=== PATIENT | female | born 1960 ===

== ENCOUNTER 2016-08-10 22:10 | Observation (INO) | payer MEDICAID, OTHER ==
[2016-08-10] MEDS ORDERED: Alum-Mag Hydrox-Simethicone Susp (30 mL) PO STA (22:31)
[2016-08-10] MEDS ORDERED: Sodium Chloride 0.9% 1,000 ML IV STA (22:31)
[2016-08-10 23:15] LABS: BASO # 0.02 K/mm3 (0.0-2.0); BASO % 0.3 % (0.0-3.0); EOS # 0.6 (0.0-0.7); GRAN % 45.1 % (50.0-68.0); HEMOGLOBIN 12.3 gm/dL (12.0-16.0); LYMPH # 2.2 (1.2-3.4); LYMPH % 37.9 % (22.0-35.0); MEAN CELL VOLUME 87.5 fL (80.0-105.0); MEAN CORPUSCULAR HEMOGLOBIN 29.1 pg (25.0-35.0); MEAN CORPUSCULAR HGB CONC 33.2 g/dl (31.0-37.0); MEAN PLATELET VOLUME 10.5 fl (7.0-11.0); MONO # 0.4 (0.1-0.6); MONO % 6.7 % (1.0-6.0); PLATELET COUNT 232 10^3/uL (120.0-450.0); RBC 4.23 10^6/uL (3.5-6.1); RED CELL DISTRIBUTION WIDTH 12.5 % (11.5-14.5); WHITE BLOOD COUNT 5.8 10^3/ul (4.5-11.0)
[2016-08-10 23:24] LABS: ALB/GLOB RATIO 1.2 (1.1-1.8); ALBUMIN 3.8 g/dL (3.0-4.8); ALT/SGPT 27 U/L (7-56); AST/SGOT 19 U/L (15-39); BLOOD UREA NITROGEN 23 mg/dL (7-21); CALCIUM 8.8 mg/dL (8.4-10.5); GFR AFRICAN-AMERICAN > 60; GFR NON-AFRICAN AMERICAN > 60; LIPASE 175 U/L (23-300)
[2016-08-10 23:36] LABS: TROPONIN I < 0.01 ng/mL
[2016-08-11] LABS: URINE BILIRUBIN NEGATIVE (NEGATIVE); URINE BLOOD NEGATIVE (NEGATIVE); URINE GLUCOSE (UA) NEGATIVE (NEGATIVE); URINE LEUKOCYTE ESTERASE NEGATIVE Leu/uL (NEGATIVE); URINE NITRATE NEGATIVE (NEGATIVE); URINE PROTEIN NEGATIVE mg/dL (<30 mg/dL); URINE UROBILINOGEN 0.2 E.U./dL (<1 E.U./dL)
[2016-08-11 00:08] LABS: URINE APPEARANCE CLEAR (CLEAR); URINE COLOR YELLOW (YELLOW)
--- NOTE | 2016-08-11 01:50 | ED PDOC ---
Arrival/HPI - General Chief Complaint: Abdominal Pain Time Seen by Provider: 08/10/16 22:31 Historian: Patient - History of Present Illness Narrative History of Present Illness (Text): 08/11/16 22:31 Carol Ann Roberson is a 56 year old female, whose past medical history includes peptic ulcer disease and EGD (approximately 11 years ago), who presents to the emergency department complaining of epigastric and RUQ pain for 3 days. Patient notes experiencing one episode of associated vomiting yesterday. Patient states that she took some antacids with little relief. Patient denies any nausea, diarrhea, fever, or any other complaint at this time. PMD: None Time/Duration: < week Symptom Onset: Gradual Symptom Course: Unchanged Severity Level: Mild Activities at Onset: Rest Context: Home Past Medical History - Provider Review Nursing Documentation Reviewed: Yes - Infectious Disease Hx of Infectious Diseases: None - Tetanus Immunization Tetanus Immunization: Unknown - Psychiatric Hx Substance Use: No - Surgical History Hx Hysterectomy: Yes - Anesthesia Hx Anesthesia: Yes Hx Anesthesia Reactions: No Hx Malignant Hyperthermia: No Family/Social History - Physician Review Nursing Documentation Reviewed: Yes Family/Social History: No Known Family HX Smoking Status: Never Smoked Hx Alcohol Use: No Hx Substance Use: No Allergies/Home Meds Allergies/Adverse Reactions: Allergies No Known Allergies Allergy (Verified 01/20/15 13:46) Home Medications: Home Meds Medication Instructions Recorded Confirmed No Known Home Med 08/11/16 08/11/16 Review of Systems - Physician Review All systems were reviewed & negative as marked: Yes - Review of Systems Constitutional: absent: Fevers, Night Sweats Eyes: absent: Vision Changes ENT: absent: Hearing Changes Respiratory: absent: SOB, Cough Cardiovascular: absent: Chest Pain Gastrointestinal: Abdominal Pain (epigastri and RUQ pain), Vomiting. absent: Diarrhea, Nausea Genitourinary Female: absent: Dysuria, Urine Output Changes Musculoskeletal: absent: Back Pain, Neck Pain Skin: absent: Rash Neurological: absent: Headache, Dizziness Endocrine: absent: Diaphoresis Hemo/Lymphatic: absent: Adenopathy Psychiatric: absent: Anxiety, Depression Physical Exam Vital Signs Reviewed: Yes Vital Signs Temp Pulse Resp BP Pulse Ox 08/11/16 03:29 61 14 126/79 95 08/11/16 01:28 66 16 136/79 97 08/10/16 22:22 98.1 F 92 H 19 137/88 98 08/10/16 22:15 98.1 F 71 16 137/88 95 Temperature: Afebrile Blood Pressure: Normal Pulse: Regular Respiratory Rate: Normal Appearance: Positive for: Well-Appearing, Non-Toxic, Comfortable Pain Distress: None Mental Status: Positive for: Alert and Oriented X 3 - Systems Exam Head: Present: Atraumatic, Normocephalic Pupils: Present: PERRL Extroacular Muscles: Present: EOMI Conjunctiva: Present: Normal Mouth: Present: Moist Mucous Membranes Neck: Present: Normal Range of Motion Respiratory/Chest: Present: Clear to Auscultation, Good Air Exchange. No: Respiratory Distress, Accessory Muscle Use Cardiovascular: Present: Regular Rate and Rhythm, Normal S1, S2. No: Murmurs Abdomen: Present: Tenderness (Epigastric and RUQ tenderness), Other (negative Antunez's sign). No: McBurney's Point Tender Back: Present: Normal Inspection Upper Extremity: Present: Normal Inspection. No: Cyanosis, Edema Lower Extremity: Present: Normal Inspection. No: Edema Neurological: Present: GCS=15, CN II-XII Intact, Speech Normal Skin: Present: Warm, Dry, Normal Color. No: Rashes Psychiatric: Present: Alert, Oriented x 3, Normal Insight, Normal Concentration Medical Decision Making ED Course and Treatment: 08/11/16 22:35 Impression: 56 year old female complaining of epigastric and RUQ pain for 3 days. Differential Diagnosis include but are not limited to: Peptic Ulcer disease vs. Cholelithiasis Plan: -- EKG -- Chest X-ray -- Extremity Ultrasound -- Labs -- Maalox, Bentyl, Pepcid, Zofran, Lidocaine, and IV Fluids -- Reassess and disposition Prior Visits: Notes and results from previous visits were reviewed. Patient last seen in ED on 08/06/15 for right-sided back pain radiating into the right leg for 3 days. Patient was discharged home. Progress Notes: EKG: Ordered, reviewed, and independently interpreted the EKG. Rate : 69 BPM Rhythm : NSR Interpretation : Normal Baker, Normal Intervals. 08/11/16 23:20 Radiographs of the Lumbar Spine: Dictator : Gerber Holly MD FINDINGS: BONES:Normal alignment. No listhesis. No fracture. DISC SPACES:Unremarkable. OTHER FINDINGS:None. IMPRESSION: Unremarkable radiographs of the lumbar spine. 08/11/16 23:50 Right lower extremity venous US: Dictator : Aguila Duarte MD FINDINGS: The visualized deep venous system of the right lower extremity is sonographically normal and compressible. Normal waveforms and augmentation are seen. There is no sonographic evidence for deep venous thrombosis in the visualized segments of the right lower extremity. IMPRESSION: 1. No sonographic evidence for deep venous thrombosis in the visualized segments of the right lower extremity. 08/11/16 04:36 Spoke to surgical rn, who states that further intervention will require admission. Case discussed with Medicine resident, who is aware and agrees with patient plan for admission. - Lab Interpretations Lab Results: 08/10/16 23:03 08/10/16 23:03 Lab Results 08/11/16 04:29: PT 10.3, INR 0.95, APTT 28.0 08/10/16 23:45: Urine HCG, Qual Negative 08/10/16 23:45: Urine Color Yellow, Urine Appearance Clear, Urine pH 6.0, Ur Specific [place] 1.020, Urine Protein Negative, Urine Glucose (UA) Negative, Urine Ketones Negative, Urine Blood Negative, Urine Nitrate Negative, Urine Bilirubin Negative, Urine Urobilinogen 0.2, Ur Leukocyte Esterase Negative 08/10/16 23:03: Sodium 137, Potassium 3.9, Chloride 104, Carbon Dioxide 25, Anion Gap 12, BUN 23 H, Creatinine 0.9, Est GFR ( Amer) > 60, Est GFR ( Non-Af Amer) > 60, Random Glucose 100, Calcium 8.8, Total Bilirubin 0.3, AST 19 , ALT 27, Alkaline Phosphatase 85, Troponin I < 0.01, Total Protein 7.0, Albumin 3.8, Globulin 3.2, Albumin/Globulin Ratio 1.2, Lipase 175 08/10/16 23:03: WBC 5.8, RBC 4.23, Hgb 12.3, Hct 37.0, MCV 87.5, MCH 29.1, MCHC 33.2, RDW 12.5, Plt Count 232, MPV 10.5, Gran % 45.1 L, Lymph % (Auto) 37.9 H, [place] % (Auto) 6.7 H, Eos % (Auto) 10.0 H, Baso % (Auto) 0.3, Gran # 2.60, Lymph # 2.2, [place] # 0.4, Eos # 0.6, Baso # 0.02 I have reviewed the lab results: Yes - RAD Interpretation Radiology Orders: 08/10/16 22:32 CHEST PORTABLE [RAD] Stat 08/10/16 22:49 ABDOMEN COMPLETE [US] Stat - Medication Orders Current Medication Orders: Acetaminophen (Tylenol 325mg Tab) 650 mg PO Q6H PRN PRN Reason: Fever >100.4 F Dicyclomine HCl (Bentyl) 10 mg PO QID JUANA Docusate Sodium (Colace) 100 mg PO BID JUANA Famotidine (Pepcid) 20 mg IVP DAILY JUANA Hydromorphone HCl (Dilaudid) 0.5 mg IVP Q4H PRN PRN Reason: Pain, moderate (4-7) Piperacillin Sod/Tazobactam Sod (Zosyn 3.375 In Ns 100ml) 100 mls @ 200 mls/hr IVPB Q6 JUANA PRN Reason: Protocol Stop: 08/11/16 12:29 Ondansetron HCl (Zofran Inj) 4 mg IVP Q6H PRN PRN Reason: Nausea/Vomiting Discontinued Medications Al Hydrox/Mg Hydrox/Simethicone (Maalox Plus 30 Ml) 30 ml PO STAT STA Stop: 08/10/16 22:32 Last Admin: 08/10/16 22:54 Dose: 30 ml Famotidine (Pepcid) 20 mg IVP STAT STA Stop: 08/10/16 22:32 Last Admin: 08/10/16 22:54 Dose: 20 mg Sodium Chloride (Sodium Chloride 0.9%) 1,000 mls @ 100 mls/hr IV .Q10H STA Stop: 08/11/16 08:30 Last Admin: 08/10/16 22:55 Dose: 100 mls/hr Sodium Chloride (Sodium Chloride 0.9%) 1,000 mls @ 150 mls/hr IV .Q6H40M STA Stop: 08/11/16 05:10 Last Admin: 08/11/16 05:00 Dose: 150 mls/hr Lidocaine HCl (Lidocaine 2% Viscous) 10 ml PO STAT STA Stop: 08/10/16 22:33 Last Admin: 07/06/17 22:54 Dose: 10 ml Ondansetron HCl (Zofran Inj) 4 mg IVP STAT STA Stop: 08/10/16 22:32 Last Admin: 08/10/16 22:55 Dose: 4 mg - Scribe Statement The provider has reviewed the documentation as recorded by the Nik Ang Provider Scribe Attestation: All medical record entries made by the Scribe were at my direction and personally dictated by me. I have reviewed the chart and agree that the record accurately reflects my personal performance of the history, physical exam, medical decision making, and the department course for this patient. I have also personally directed, reviewed, and agree with the discharge instructions and disposition. Disposition/Present on Arrival - Present on Arrival Any Indicators Present on Arrival: No History of DVT/PE: No History of Uncontrolled Diabetes: No Urinary Catheter: No History of Decub. Ulcer: No History Surgical Site Infection Following: None - Disposition Have Diagnosis and Disposition been Completed?: Yes Diagnosis: Cholecystitis Disposition: HOSPITALIZED Disposition Time: 04:10 Condition: STABLE
--- NOTE | 2016-08-11 03:21 | US ---
EXAM: US Abdomen Complete CLINICAL HISTORY: 56 years old, female; Pain; Abdominal pain; Generalized; Additional info: Ruq>luq abdominal pain TECHNIQUE: Real-time ultrasound of the abdomen (complete) with image documentation. COMPARISON: No relevant prior studies available. FINDINGS: Liver: There are no focal liver lesions present. No intrahepatic bile duct dilation. Gallbladder: There is an impacted gallstone at the gallbladder neck measuring 1.4 CM. the sonographic Antunez's sign is reportedly positive although the gallbladder appears contracted. Gallbladder wall thickening measuring 0.4 CM. Common bile duct: Unremarkable as visualized. No stones. No dilation. Pancreas: The pancreas is not well-seen secondary to overlying bowel gas. Kidneys: The left kidney is normal. The right kidney is normal. No stones. No hydronephrosis. Spleen: The spleen is normal. Aorta: The visualized IVC appears unremarkable. The abdominal aorta is not well-seen. Inferior vena cava: See above. IMPRESSION: 1. There is an impacted gallstone at the gallbladder neck measuring 1.4 CM. Reportedly positive sonographic Antunez sign although the gallbladder appears contracted. There does appear to be some mild gallbladder wall thickening although this may relate to under distention. Please correlate for the possibility of acute cholecystitis. If indicated, this can be further evaluated with HIDA scan. 2. Additional incidental and/or chronic findings as described.
[2016-08-11] MEDS ORDERED: Sodium Chloride 0.9% 1,000 ML IV STA (04:31)
--- NOTE | 2016-08-11 04:36 | CP.PCM.CON ---
<Sotero Dyer - Last Filed: 08/11/16 04:51> History of Present Illness - History of Present Illness History of Present Illness: SURGERY CONSULT NOTE FOR DR. SAEZ 56F presents to [facility] [place] with abdominal pain which started 6 days ago. Patient states pain was originally epigastric and associated with nausea and vomiting which relieved the pain last weekend. She states the pain now came back much stronger and almost considered calling ambulance due to the pain. It is currently located in the right upper quadrant and does not radiate. It is sharp and she has not had this pain in the past before. She states last week she had mild chills/fevers, but did not take her temperature. She denies current fevers and chills, denies diarrhea, admits to mild constipation. PMH: GERD PSH: Hysterectomy/bilateral salpingoophorectomy, neck cyst removal Social: denies tobacco/alcohol/illicit drug use Allergies: NKDA Past Patient History - Infectious Disease Hx of Infectious Diseases: None - Tetanus Immunizations Tetanus Immunization: Unknown - Past Social History Smoking Status: Never Smoked - PSYCHIATRIC Hx Substance Use: No - SURGICAL HISTORY Hx Hysterectomy: Yes - ANESTHESIA Hx Anesthesia: Yes Hx Anesthesia Reactions: No Hx Malignant Hyperthermia: No Meds Allergies/Adverse Reactions: Allergies Allergy/AdvReac Type Severity Reaction Status Date / Time No Known Allergies Allergy Verified 01/20/15 13:46 - Medications Medications: Current Medications Acetaminophen (Tylenol 325mg Tab) 650 mg PO Q6H PRN PRN Reason: Fever >100.4 F Dicyclomine HCl (Bentyl) 10 mg PO QID JUANA Famotidine (Pepcid) 20 mg IVP DAILY JUANA Hydromorphone HCl (Dilaudid) 0.5 mg IVP Q4H PRN PRN Reason: Pain, moderate (4-7) Sodium Chloride (Sodium Chloride 0.9%) 1,000 mls @ 150 mls/hr IV .Q6H40M STA Stop: 08/11/16 05:10 Ondansetron HCl (Zofran Inj) 4 mg IVP Q6H PRN PRN Reason: Nausea/Vomiting Physical Exam - Constitutional Appears: Non-toxic, No Acute Distress - Head Exam Head Exam: ATRAUMATIC - Eye Exam Eye Exam: EOMI, PERRL - Respiratory Exam Respiratory Exam: Clear to Auscultation Bilateral, NORMAL BREATHING PATTERN - Cardiovascular Exam Cardiovascular Exam: REGULAR RHYTHM, +S1, +S2 - GI/Abdominal Exam GI & Abdominal Exam: Soft, Tenderness. absent: Distended, Firm, Guarding, Rebound, Rigid Additional comments: right upper quadrant moderate tenderness on palpation, positive freeman's sign - respiratory arrest on inspiration with RUQ palpation - Extremities Exam Extremities exam: Negative for: pedal edema, tenderness - Neurological Exam Neurological exam: Alert, Oriented x3 - Psychiatric Exam Psychiatric exam: Normal Affect, Normal Mood - Skin Skin Exam: Dry, Intact, Normal Color, Warm Results - Vital Signs Recent Vital Signs: Last Vital Signs Temp 98.1 F 08/10/16 22:22 Pulse 61 08/11/16 03:29 Resp 14 08/11/16 03:29 BP 126/79 08/11/16 03:29 Pulse Ox 95 08/11/16 03:29 - Labs Result Diagrams: 08/10/16 23:03 08/10/16 23:03 Labs: Laboratory Results - last 24 hr 08/10/16 08/10/16 08/10/16 23:03 23:03 23:45 WBC 5.8 RBC 4.23 Hgb 12.3 Hct 37.0 MCV 87.5 MCH 29.1 MCHC 33.2 RDW 12.5 Plt Count 232 MPV 10.5 Gran % 45.1 L Lymph % (Auto) 37.9 H [place] % (Auto) 6.7 H Eos % (Auto) 10.0 H Baso % (Auto) 0.3 Gran # 2.60 Lymph # 2.2 [place] # 0.4 Eos # 0.6 Baso # 0.02 Sodium 137 Potassium 3.9 Chloride 104 Carbon Dioxide 25 Anion Gap 12 BUN 23 H Creatinine 0.9 Est GFR ( Amer) > 60 Est GFR (Non-Af Amer) > 60 Random Glucose 100 Calcium 8.8 Total Bilirubin 0.3 AST 19 ALT 27 Alkaline Phosphatase 85 Troponin I < 0.01 Total Protein 7.0 Albumin 3.8 Globulin 3.2 Albumin/Globulin Ratio 1.2 Lipase 175 Urine Color Yellow Urine Appearance Clear Urine pH 6.0 Ur Specific [place] 1.020 Urine Protein Negative Urine Glucose (UA) Negative Urine Ketones Negative Urine Blood Negative Urine Nitrate Negative Urine Bilirubin Negative Urine Urobilinogen 0.2 Ur Leukocyte Esterase Negative Assessment & Plan - Assessment and Plan (Free Text) Assessment: 56F with cholecystitis Abd US: Impacted 1.4cm gallstone at gall bladder neck, mild gallbladder wall thickening, positive sonographic freeman's sign Plan: - NPO, pain control, anti-emetic - Antibiotic, IV fluids, stool softeners - f/u Coag/ HcG - Patient consented for Lap francis - GI/DVT ppx Further recs discuss with Dr. Jessica Dyer, PGY2 <Christine Huang - Last Filed: 08/11/16 13:34> Meds - Medications Medications: Current Medications Acetaminophen (Tylenol 325mg Tab) 650 mg PO Q6H PRN PRN Reason: Fever >100.4 F Dicyclomine HCl (Bentyl) 10 mg PO QID [facility] Last Admin: 08/11/16 09:03 Dose: Not Given Docusate Sodium (Colace) 100 mg PO BID [facility] Last Admin: 08/11/16 09:03 Dose: Not Given Famotidine (Pepcid) 20 mg IVP DAILY [facility] Last Admin: 08/11/16 09:03 Dose: Not Given Hydromorphone HCl (Dilaudid) 0.5 mg IVP Q4H PRN PRN Reason: Pain, moderate (4-7) Sodium Chloride (Sodium Chloride 0.9%) 1,000 mls @ 150 mls/hr IV .Q6H40M [facility] Ondansetron HCl (Zofran Inj) 4 mg IVP Q6H PRN PRN Reason: Nausea/Vomiting Pantoprazole Sodium (Protonix Ec Tab) 40 mg PO 0600 [facility] Results - Vital Signs Recent Vital Signs: Last Vital Signs Temp 97.7 F 08/11/16 07:30 Pulse 61 08/11/16 07:30 Resp 20 08/11/16 07:30 BP 136/86 08/11/16 07:30 Pulse Ox 97 08/11/16 07:30 - Labs Result Diagrams: 08/11/16 08:30 08/11/16 08:30 Labs: Laboratory Results - last 24 hr 08/11/16 08/11/16 08/11/16 05:15 06:10 08:30 WBC 5.5 RBC 4.27 Hgb 12.5 Hct 37.8 MCV 88.5 MCH 29.3 MCHC 33.1 RDW 12.6 Plt Count 230 MPV 10.9 Gran % 49.2 L Lymph % (Auto) 32.0 [place] % (Auto) 8.3 H Eos % (Auto) 10.1 H Baso % (Auto) 0.4 Gran # 2.72 Lymph # 1.8 [place] # 0.5 Eos # 0.6 Baso # 0.02 Sodium Potassium Chloride Carbon Dioxide Anion Gap BUN Creatinine Est GFR ( Amer) Est GFR (Non-Af Amer) Random Glucose Calcium Total Bilirubin AST ALT Alkaline Phosphatase Troponin I Total Protein Albumin Globulin Albumin/Globulin Ratio Blood Type B POSITIVE Blood Type Confirm B POSITIVE Antibody Screen Negative BBK History Checked No verified bt 08/11/16 08/11/16 08:30 10:00 WBC RBC Hgb Hct MCV MCH MCHC RDW Plt Count MPV Gran % Lymph % (Auto) [place] % (Auto) Eos % (Auto) Baso % (Auto) Gran # Lymph # [place] # Eos # Baso # Sodium 140 Potassium 4.0 Chloride 107 Carbon Dioxide 27 Anion Gap 10 BUN 19 Creatinine 0.8 Est GFR ( Amer) > 60 Est GFR (Non-Af Amer) > 60 Random Glucose 99 Calcium 9.1 Total Bilirubin 0.3 AST 21 ALT 22 Alkaline Phosphatase 83 Troponin I < 0.01 Total Protein 6.7 Albumin 3.7 Globulin 2.9 Albumin/Globulin Ratio 1.3 Blood Type Blood Type Confirm Antibody Screen BBK History Checked Assessment & Plan - Assessment and Plan (Free Text) Plan: No surgical intervention at this time. Pt instructed to f/u in office for elective lap francis.
[2016-08-11 05:54] LABS: INR 0.95 (0.93-1.08); PROTHROMBIN TIME 10.3 Seconds (9.9-11.8)
[2016-08-11 05:57] VITALS: RESP 20; BMI 30.2
[2016-08-11] MEDS: Piperacillin/Tazobact 3.375 gm 100 ML IVPB SCH ×2 (06:28→13:31)
--- NOTE | 2016-08-11 06:51 | CP.PCM.HP ---
<Abdullahi Vargas - Last Filed: 08/11/16 06:47> History of Present Illness - History of Present Illness History of Present Illness: Abdullahi Vargas, DO PGY-I CC: Abdominal pain HPI: Ms. Roberson is a very pleasant, alert, 56 y/o female with a PMHx significant for PUD, who presented with a c/o sharp epigastric and RUQ abdominal pain of 3 days duration with radiation to the scapula. Ms. Roberson stated that she actually had the pain for about three weeks on and off, but she came to the ED when the pain reached a 10/10 and did not subside. She further stated that she took Prilosec at home, but that did not help the pain, and fatty foods made the pain worse. She admitted to nausea, but denied any fevers, chills, vomiting, diarrhea, chest pain, or shortness of breath. PSHx: Total hysterectomy and oophorectomy, EGD, Lipoma removal PMHx: Pt denies All: NKDA SocHx: Denies EtOH, Illicits, Smoking FamHx: Non-contributory, but HTN Meds: Pt denies Present on Admission - Present on Admission Any Indicators Present on Admission: No Review of Systems - Review of Systems Review of Systems: ROS: Constitutional: pt denies fever, chills, generalized weakness ENT: pt denies dysphagia, ofalgia, hearing deficit, rhinorrhea Eyes: pt denies sudden loss of vision, diplopia, blurred vision MSK: pt denies muscle stiffness, joint pain, extremity cramping Cardio: pt denies sob, palpitations, CP Pulm: pt denies cough, hemoptysis, wheeze GI: +See HPI; pt denies loss of appetite, constipation, melena, n/v/d : pt denies burning on urination, hematuria Neuro: pt denies watson, numbness, tingling Derm: pt denies skin changes, lesions, nail changes Endo: pt denies intolerance to heat/cold, diaphoresis, night sweats, polydipsia Psych: pt denies anxiety, depression, mood changes Past Patient History - Infectious Disease Hx of Infectious Diseases: None - Tetanus Immunizations Tetanus Immunization: Unknown - Past Social History Smoking Status: Never Smoked - MUSCULOSKELETAL/RHEUMATOLOGICAL Hx Falls: No - PSYCHIATRIC Hx Substance Use: No - SURGICAL HISTORY Hx Hysterectomy: Yes - ANESTHESIA Hx Anesthesia: Yes Hx Anesthesia Reactions: No Hx Malignant Hyperthermia: No Meds Allergies/Adverse Reactions: Allergies Allergy/AdvReac Type Severity Reaction Status Date / Time No Known Allergies Allergy Verified 01/20/15 13:46 Physical Exam - Additional Findings Additional findings: Physical Exam: VSS Constitutional: pleasant female, a&o x 4, nad Head and Neck: neck supple, no jvd, trachea midline, carotid midline,no cervical /head mass Eyes: kira, nonicteric sclera, eom intact ENT: auditory acuity grossly intact, throat not congested, no nasal deformity Cardio: rrr, no m/r/g, no carotid bruit, nml s1, s2 Pulm: no accessory muscle use, equal nml breath sounds bilaterally, ctab Abd: s/nt/nd, nbs x 4 q, no palpable masses Derm: no rashes, no ulcers, no lesions Extr: no cyanosis, no calf tenderness, no lesions, no varicosities Neuro: cn II-XII grossly intact, ue and le 3+ muscle strength bilaterally, no los ue, le bilaterally and core, 2+ reflexes bilaterally Results - Vital Signs Recent Vital Signs: Last Vital Signs Temp 97.7 F 08/11/16 05:41 Pulse 61 08/11/16 05:41 Resp 20 08/11/16 05:41 BP 136/86 08/11/16 05:41 Pulse Ox 97 08/11/16 05:25 - Labs Result Diagrams: 08/10/16 23:03 08/10/16 23:03 Labs: Laboratory Results - last 24 hr 08/11/16 05:15 BBK History Checked No verified bt Assessment & Plan - Assessment and Plan (Free Text) Assessment: A/P: Ms. Roberson is a very pleasant, alert, 56 y/o female with a PMHx significant for PUD, who presented with a c/o epigastric and RUQ abdominal pain. 1.) Abdominal Pain 2/2 Cholelithiasis - EKG - Abd U/S shows pos sonography Antunez sign - Blood type and screen - LE U/S - Maalox, Bentyl, Pepcid, Zofran, Lidocaine, IVF - Surgery on c/s may go to surgery today -Dilaudid for pain 2.) Diet - NPO 3.) Hx/O PUD - F/U o/p <Trav Scott P - Last Filed: 08/20/16 06:30> Results - Vital Signs Recent Vital Signs: Last Vital Signs Temp 97.7 F 08/12/16 16:00 Pulse 69 08/12/16 16:00 Resp 20 08/12/16 16:00 BP 131/81 08/12/16 16:00 Pulse Ox 97 08/12/16 16:00 - Labs Result Diagrams: 08/12/16 06:30 08/12/16 06:30 Attending/Attestation - Attestation I have personally seen and examined this patient.: Yes I have fully participated in the care of the patient.: Yes I have reviewed all pertinent clinical information: Yes
--- NOTE | 2016-08-11 08:54 | RAD ---
HISTORY: r/o infiltrate COMPARISON: No prior. FINDINGS: LUNGS: No active pulmonary disease. PLEURA: No significant pleural effusion identified, no pneumothorax apparent. CARDIOVASCULAR: Normal. OSSEOUS STRUCTURES: No significant abnormalities. VISUALIZED UPPER ABDOMEN: Normal. OTHER FINDINGS: None. IMPRESSION: No active disease.
[2016-08-11 09:03] LABS: BASO # 0.02 K/mm3 (0.0-2.0); BASO % 0.4 % (0.0-3.0); EOS # 0.6 (0.0-0.7); EOS % 10.1 % (1.5-5.0); GRAN # 2.72 (1.4-6.5); GRAN % 49.2 % (50.0-68.0); HEMOGLOBIN 12.5 gm/dL (12.0-16.0); LYMPH # 1.8 (1.2-3.4); MEAN CELL VOLUME 88.5 fL (80.0-105.0); MEAN CORPUSCULAR HEMOGLOBIN 29.3 pg (25.0-35.0); MEAN CORPUSCULAR HGB CONC 33.1 g/dl (31.0-37.0); MEAN PLATELET VOLUME 10.9 fl (7.0-11.0); MONO # 0.5 (0.1-0.6); MONO % 8.3 % (1.0-6.0); PLATELET COUNT 230 10^3/uL (120.0-450.0); RBC 4.27 10^6/uL (3.5-6.1); RED CELL DISTRIBUTION WIDTH 12.6 % (11.5-14.5); WHITE BLOOD COUNT 5.5 10^3/ul (4.5-11.0)
[2016-08-11 09:14] LABS: ALB/GLOB RATIO 1.3 (1.1-1.8); ALBUMIN 3.7 g/dL (3.0-4.8); ALT/SGPT 22 U/L (7-56); AST/SGOT 21 U/L (15-39); BLOOD UREA NITROGEN 19 mg/dL (7-21); CALCIUM 9.1 mg/dL (8.4-10.5); GFR AFRICAN-AMERICAN > 60; GFR NON-AFRICAN AMERICAN > 60
--- NOTE | 2016-08-11 10:40 | CARD ---
APPROVED REPORT EKG Measurement Heart [id number] <Conclusion> Normal sinus rhythm NSSTW changes
--- NOTE | 2016-08-11 10:52 | NM ---
PROCEDURE: Nuclear Medicine Hepatobiliary Scan HISTORY: eval for cholecystitis COMPARISON: August 11, 2016. Abdominal ultrasound TECHNIQUE: 5.9 mCi of technetium 99m Mebrofenin was administered intravenously. Planar images of the abdomen were obtained at 5 min intervals to 60 mins. Delayed images were also obtained. FINDINGS: LIVER: Timely and homogenous uptake. COMMON BILE DUCT: identified at 5 mins. GALLBLADDER: identified at 5 mins. SMALL BOWEL: Identified at 45 mins. IMPRESSION: Normal Hepatobiliary Scan. The cystic duct is patent.
[2016-08-11] MEDS ORDERED: POLYETHYLENE GLYCOL 3350 17 GM/Dose PACKET PO STA (11:41)
--- NOTE | 2016-08-11 12:52 | RAD ---
HISTORY: abdominal pain COMPARISON: No prior. FINDINGS: BOWEL: Normal. No obstruction. No free air. [id number] constipation BONES: Normal. OTHER FINDINGS: None. IMPRESSION: No active disease.
[2016-08-11] MEDS: HYDROmorphone 0.5 mg/0.5 ml ISec IVP PRN (17:37)
--- NOTE | 2016-08-11 18:44 | CP.PCM.PN ---
Subjective - Date & Time of Evaluation Date of Evaluation: 08/11/16 Time of Evaluation: 18:38 - Subjective Subjective: Pt seen and examined at bedside. Pt was initially given a liquid diet and advanced to heart healthy, low fat diet. Pt states abdominal pain became worse after eating food. Denies CP, SOB, nausea, vomiting, diarrhea. Objective - Vital Signs/Intake and Output Vital Signs (last 24 hours): Temp Pulse Resp BP Pulse Ox 98.2 F 65 20 127/78 96 08/11/16 15:58 08/11/16 15:58 08/11/16 15:58 08/11/16 15:58 08/11/16 15:58 Intake and Output: 08/11/16 08/11/16 06:59 18:59 Intake Total 240 Output Total 5 Balance 235 - Medications Medications: Current Medications Acetaminophen (Tylenol 325mg Tab) 650 mg PO Q6H PRN PRN Reason: Fever >100.4 F Dicyclomine HCl (Bentyl) 10 mg PO QID [facility] Last Admin: 08/11/16 17:35 Dose: 10 mg Docusate Sodium (Colace) 100 mg PO BID [facility] Last Admin: 08/11/16 17:35 Dose: 100 mg Famotidine (Pepcid) 20 mg IVP DAILY [facility] Last Admin: 08/11/16 17:37 Dose: 20 mg Hydromorphone HCl (Dilaudid) 0.5 mg IVP Q4H PRN PRN Reason: Pain, moderate (4-7) Last Admin: 08/11/16 17:37 Dose: 0.5 mg Sodium Chloride (Sodium Chloride 0.9%) 1,000 mls @ 150 mls/hr IV .Q6H40M [facility] Ondansetron HCl (Zofran Inj) 4 mg IVP Q6H PRN PRN Reason: Nausea/Vomiting Pantoprazole Sodium (Protonix Ec Tab) 40 mg PO 0600 [facility] - Labs Labs: 08/11/16 08:30 08/11/16 08:30 PT 10.3 Seconds (9.9-11.8) 08/11/16 04:29 INR 0.95 (0.93-1.08) 08/11/16 04:29 APTT 28.0 Seconds (23.7-30.8) 08/11/16 04:29 - Constitutional Appears: Non-toxic, No Acute Distress - Head Exam Head Exam: ATRAUMATIC, NORMAL INSPECTION, NORMOCEPHALIC - Respiratory Exam Respiratory Exam: Clear to Ausculation Bilateral, NORMAL BREATHING PATTERN - Cardiovascular Exam Cardiovascular Exam: RRR, +S1, +S2 - GI/Abdominal Exam GI & Abdominal Exam: Soft, Tenderness (RUQ), Normal Bowel Sounds - Extremities Exam Extremities Exam: absent: Calf Tenderness, Pedal Edema - Neurological Exam Neurological Exam: Alert, Awake, Oriented x3 - Psychiatric Exam Psychiatric exam: Normal Affect, Normal Mood - Skin Skin Exam: Intact, Normal Color, Warm Assessment and Plan - Assessment and Plan (Free Text) Plan: 56 y/o F with no significant PMH presents with biliary colic. Abdominal US showed gallstone in gallbladder neck, follow up HIDA scan did not show any evidence of blockage or cholecystitis. Pt will require IV pain medication at this time due to severe abdominal pain. Pt will undergo Abdomen/pelvis CT with PO contrast to further evaluate abdominal pain. 1. Biliary Colic Troponins negative Abdominal US showed stone in gallbladder neck HIDA negative Abdomen/pelvis CT order Continue dilaudid for pain Start pepcid and protonix Colace for constipation 2. PPX Protonix/Pepcid SCDs Seen, reviewed, and discussed with attending Durga, PGY-2
[2016-08-11 20:31] LABS: ALB/GLOB RATIO 1.2 (1.1-1.8); ALBUMIN 3.8 g/dL (3.0-4.8); ALT/SGPT 23 U/L (7-56); AST/SGOT 21 U/L (15-39); BLOOD UREA NITROGEN 15 mg/dL (7-21); CALCIUM 8.7 mg/dL (8.4-10.5); GFR AFRICAN-AMERICAN > 60; GFR NON-AFRICAN AMERICAN > 60
[2016-08-11] MEDS: Sodium Chloride 0.9% 1,000 ML IV SCH (21:47)
[2016-08-12] MEDS: Sodium Chloride 0.9% 1,000 ML IV SCH ×2 (05:41→09:58)
[2016-08-12] MEDS ORDERED: Pantoprazole 40 mg EC Tab PO SCH (06:00)
[2016-08-12 07:14] LABS: HEMOGLOBIN 12.4 gm/dL (12.0-16.0); MEAN CELL VOLUME 88.4 fL (80.0-105.0); MEAN CORPUSCULAR HEMOGLOBIN 28.7 pg (25.0-35.0); MEAN CORPUSCULAR HGB CONC 32.5 g/dl (31.0-37.0); MEAN PLATELET VOLUME 10.7 fl (7.0-11.0); RBC 4.32 10^6/uL (3.5-6.1); RED CELL DISTRIBUTION WIDTH 12.5 % (11.5-14.5); WHITE BLOOD COUNT 5.9 10^3/ul (4.5-11.0)
[2016-08-12 07:22] LABS: ALB/GLOB RATIO 1.2 (1.1-1.8); ALBUMIN 3.4 g/dL (3.0-4.8); ALT/SGPT 26 U/L (7-56); AST/SGOT 19 U/L (15-39); BLOOD UREA NITROGEN 13 mg/dL (7-21); CALCIUM 8.7 mg/dL (8.4-10.5); GFR AFRICAN-AMERICAN > 60; GFR NON-AFRICAN AMERICAN > 60
--- NOTE | 2016-08-12 11:21 | CP.PCM.CON ---
History of Present Illness - History of Present Illness History of Present Illness: CC: Abdominal pain HPI: 56 year old female who presents with RUQ abdominal pain. She says the pain started about 1 week ago, localized to the RUQ, severe, worse with fatty food. Denies fever, jaundice, or pruritis. No change in color of urine. No chest pain or sob. No prior h/o gallbladder disease. Denies nausea or vomiting. She reports h/o PUD and remote h/o endoscopy but not recently. She has mild intermittent constipation. No blood in the stool. No colonoscopy in the past. PMH: History of PUD, Obesity PSH: BRANNON/BSO, Lipoma removal SHx: denies tobacco/alcohol/illicit drug use FHx: no family history of gi problems ROS A comprehensive review of systems was performed and was negative apart from HPI Past Patient History - Infectious Disease Hx of Infectious Diseases: None - Tetanus Immunizations Tetanus Immunization: Unknown - Past Social History Smoking Status: Never Smoked - HEMATOLOGICAL/ONCOLOGICAL Hx Blood Transfusions: No Hx Blood Transfusion Reaction: No - MUSCULOSKELETAL/RHEUMATOLOGICAL Hx Falls: No - PSYCHIATRIC Hx Substance Use: No - SURGICAL HISTORY Hx Surgeries: Yes - ANESTHESIA Hx Anesthesia Reactions: No Hx Malignant Hyperthermia: No Meds Allergies/Adverse Reactions: Allergies Allergy/AdvReac Type Severity Reaction Status Date / Time No Known Allergies Allergy Verified 01/20/15 13:46 - Medications Medications: Current Medications Acetaminophen (Tylenol 325mg Tab) 650 mg PO Q6H PRN PRN Reason: Fever >100.4 F Last Admin: 08/12/16 09:59 Dose: 650 mg Dicyclomine HCl (Bentyl) 10 mg PO QID REPLACED BY [facility] Last Admin: 08/12/16 09:31 Dose: Not Given Docusate Sodium (Colace) 100 mg PO BID [facility]PL[facility] BY [facility] Last Admin: 08/12/16 09:31 Dose: Not Given Famotidine (Pepcid) 20 mg IVP DAILY [facility] Last Admin: 08/12/16 09:31 Dose: Not Given Hydromorphone HCl (Dilaudid) 0.5 mg IVP Q4H PRN PRN Reason: Pain, moderate (4-7) Last Admin: 08/11/16 17:37 Dose: 0.5 mg Sodium Chloride (Sodium Chloride 0.9%) 1,000 mls @ 150 mls/hr IV .Q6H40M [facility]PLAC[facility] Last Admin: 08/12/16 09:58 Dose: 150 mls/hr Ondansetron HCl (Zofran Inj) 4 mg IVP Q6H PRN PRN Reason: Nausea/Vomiting Pantoprazole Sodium (Protonix Ec Tab) 40 mg PO 0600 [facility] Last Admin: 08/12/16 05:41 Dose: 40 mg Pantoprazole Sodium (Protonix Ec Tab) 40 mg PO ONCE ONE Stop: 08/12/16 19:08 Physical Exam - Constitutional Appears: Well, No Acute Distress - Head Exam Head Exam: ATRAUMATIC, NORMOCEPHALIC - Eye Exam Eye Exam: PERRL. absent: Scleral icterus - ENT Exam ENT Exam: Mucous Membranes Moist, Normal Oropharynx - Neck Exam Neck exam: Negative for: Lymphadenopathy - Respiratory Exam Respiratory Exam: Clear to Auscultation Bilateral, NORMAL BREATHING PATTERN - Cardiovascular Exam Cardiovascular Exam: REGULAR RHYTHM, +S1, +S2 - GI/Abdominal Exam GI & Abdominal Exam: Soft, Tenderness Additional comments: +murphys - Extremities Exam Extremities exam: Positive for: normal capillary refill. Negative for: pedal edema - Neurological Exam Neurological exam: Alert, Oriented x3 - Psychiatric Exam Psychiatric exam: Normal Affect, Normal Mood - Skin Skin Exam: Dry, Intact, Warm Results - Vital Signs Recent Vital Signs: Last Vital Signs Temp 98.3 F 08/12/16 08:00 Pulse 66 08/12/16 08:00 Resp 20 08/12/16 08:00 BP 128/80 08/12/16 08:00 Pulse Ox 95 08/12/16 08:00 - Labs Result Diagrams: 08/12/16 06:30 08/12/16 06:30 Labs: Laboratory Results - last 24 hr 08/11/16 08/11/16 08/11/16 10:00 18:39 19:49 WBC RBC Hgb Hct MCV MCH MCHC RDW Plt Count MPV Sodium 137 Potassium 3.9 Chloride 105 Carbon Dioxide 24 Anion Gap 12 BUN 15 Creatinine 0.8 Est GFR ( Amer) > 60 Est GFR (Non-Af Amer) > 60 Random Glucose 104 Calcium 8.7 Total Bilirubin 0.3 AST 21 ALT 23 Alkaline Phosphatase 71 Troponin I < 0.01 < 0.01 Total Protein 6.9 Albumin 3.8 Globulin 3.1 Albumin/Globulin Ratio 1.2 08/12/16 08/12/16 06:30 06:30 WBC 5.9 RBC 4.32 Hgb 12.4 Hct 38.2 MCV 88.4 MCH 28.7 MCHC 32.5 RDW 12.5 Plt Count 225 MPV 10.7 Sodium 142 Potassium 4.0 Chloride 107 Carbon Dioxide 26 Anion Gap 13 BUN 13 Creatinine 0.8 Est GFR ( Amer) > 60 Est GFR (Non-Af Amer) > 60 Random Glucose 93 Calcium 8.7 Total Bilirubin 0.4 AST 19 ALT 26 Alkaline Phosphatase 64 Troponin I Total Protein 6.3 Albumin 3.4 Globulin 2.9 Albumin/Globulin Ratio 1.2 Assessment & Plan - Assessment and Plan (Free Text) Assessment: 56 year old female who presents with RUQ pain, +murphys sign, large stone in GB neck. 1. Acute cholecystitis Plan: -recommend cholecysectomy per surgery -lfts normal -cbd normal in diameter -no evidence ot suggest choledocholithiasis -no further evaluation at this time -continue antibiotics -will sign off at this time - Date & Time Date: 08/12/16 Time: 11:20
[2016-08-12] MEDS: HYDROmorphone 0.5 mg/0.5 ml ISec IVP PRN (12:53)
[2016-08-12] MEDS ORDERED: Iohexol 240 (50 ml) ONE (14:44)
[2016-08-12] MEDS ORDERED: Iohexol 350 MG/100 ML VIAL ONE (14:44)
--- NOTE | 2016-08-12 15:59 | CP.PCM.PN ---
Subjective - Date & Time of Evaluation Date of Evaluation: 08/12/16 Time of Evaluation: 15:56 - Subjective Subjective: General Surgery - Dr. Lopez Pt S&E. [facility]. This morning pt still had some complaints of RUQ pain, later this afternoon pt states she feels much better. She currently is tolerating regular diet with no N/V, F/C, SOB/Cp. Objective - Vital Signs/Intake and Output Vital Signs (last 24 hours): Temp Pulse Resp BP Pulse Ox 98.3 F 66 20 128/80 95 08/12/16 08:00 08/12/16 08:00 08/12/16 08:00 08/12/16 08:00 08/12/16 08:00 Intake and Output: 08/12/16 08/12/16 06:59 18:59 Intake Total 660 Balance 660 - Medications Medications: Current Medications Acetaminophen (Tylenol 325mg Tab) 650 mg PO Q6H PRN PRN Reason: Fever >100.4 F Last Admin: 08/12/16 09:59 Dose: 650 mg Dicyclomine HCl (Bentyl) 10 mg PO QID [facility] Last Admin: 08/12/16 12:59 Dose: 10 mg Docusate Sodium (Colace) 100 mg PO BID [facility] Last Admin: 08/12/16 09:31 Dose: Not Given Famotidine (Pepcid) 20 mg IVP DAILY [facility] Last Admin: 08/12/16 09:31 Dose: Not Given Hydromorphone HCl (Dilaudid) 0.5 mg IVP Q4H PRN PRN Reason: Pain, moderate (4-7) Last Admin: 08/12/16 12:53 Dose: 0.5 mg Sodium Chloride (Sodium Chloride 0.9%) 1,000 mls @ 150 mls/hr IV .Q6H40M [facility] Last Admin: 08/12/16 09:58 Dose: 150 mls/hr Piperacillin Sod/Tazobactam Sod (Zosyn 3.375 In Ns 100ml) 100 mls @ 200 mls/hr IVPB Q6 [facility] PRN Reason: Protocol Stop: 08/13/16 00:29 Ondansetron HCl (Zofran Inj) 4 mg IVP Q6H PRN PRN Reason: Nausea/Vomiting Pantoprazole Sodium (Protonix Ec Tab) 40 mg PO 0600 [facility] Last Admin: 08/12/16 05:41 Dose: 40 mg Pantoprazole Sodium (Protonix Ec Tab) 40 mg PO ONCE ONE Stop: 08/12/16 19:08 - Labs Labs: 08/12/16 06:30 08/12/16 06:30 PT 10.3 Seconds (9.9-11.8) 08/11/16 04:29 INR 0.95 (0.93-1.08) 08/11/16 04:29 APTT 28.0 Seconds (23.7-30.8) 08/11/16 04:29 - Constitutional Appears: No Acute Distress - Head Exam Head Exam: ATRAUMATIC, NORMAL INSPECTION, NORMOCEPHALIC - Respiratory Exam Respiratory Exam: NORMAL BREATHING PATTERN. absent: Respiratory Distress - Cardiovascular Exam Cardiovascular Exam: REGULAR RHYTHM - GI/Abdominal Exam GI & Abdominal Exam: Soft, Tenderness (mild ttp RUQ). absent: Distended, Guarding, Rebound - Neurological Exam Neurological Exam: Alert, Oriented x3 - Psychiatric Exam Psychiatric exam: Normal Affect, Normal Mood - Skin Skin Exam: Dry, Intact Assessment and Plan - Assessment and Plan (Free Text) Assessment: 56 yo F w/ cholelithiasis, biliary colic -Tolerating regular diet and pain is resolved -Clear for discharge home from surgical standpoint -Recc. D/C with Pepcid and Toradol PO prn -Instructions given to F/U with Dr. Lopez in office within the next 1- 2weeks and return to ED if any new or worsening pain/vomiting/fevers develop DW Dr. Lopez Trinidad PGY3
[2016-08-12 16:47] VITALS: BP 131/81; PULSE 69; TEMP 97.7; O2SAT 97
[2016-08-12] MEDS ORDERED: Piperacillin/Tazobact 3.375 gm 100 ML IVPB SCH (18:00)
--- NOTE | 2016-08-12 18:15 | CP.PCM.DIS ---
<DIANE FAY - Last Filed: 08/12/16 18:12> Provider - Provider Date of Admission: 08/11/16 04:32 Attending physician: Carola Taveras MD Primary care physician: NO PRIMARY CARE PROVIDER Time Spent in preparation of Discharge (in minutes): 45 Hospital Course - Lab Results Lab Results: Most Recent Lab Values WBC 5.9 10^3/ul (4.5-11.0) 08/12/16 06:30 RBC 4.32 10^6/uL (3.5-6.1) 08/12/16 06:30 Hgb 12.4 gm/dL (12.0-16.0) 08/12/16 06:30 Hct 38.2 % (36.0-48.0) 08/12/16 06:30 MCV 88.4 fL (80.0-105.0) 08/12/16 06:30 MCH 28.7 pg (25.0-35.0) 08/12/16 06:30 MCHC 32.5 g/dl (31.0-37.0) 08/12/16 06:30 RDW 12.5 % (11.5-14.5) 08/12/16 06:30 Plt Count 225 10^3/uL (120.0-450.0) 08/12/16 06:30 MPV 10.7 fl (7.0-11.0) 08/12/16 06:30 Gran % 49.2 % (50.0-68.0) L 08/11/16 08:30 Lymph % (Auto) 32.0 % (22.0-35.0) 08/11/16 08:30 [place]ledso[place] % (Auto) 8.3 % (1.0-6.0) H 08/11/16 08:30 Eos % (Auto) 10.1 % (1.5-5.0) H 08/11/16 08:30 Baso % (Auto) 0.4 % (0.0-3.0) 08/11/16 08:30 Gran # 2.72 (1.4-6.5) 08/11/16 08:30 Lymph # 1.8 (1.2-3.4) 08/11/16 08:30 [place] # 0.5 (0.1-0.6) 08/11/16 08:30 Eos # 0.6 (0.0-0.7) 08/11/16 08:30 Baso # 0.02 K/mm3 (0.0-2.0) 08/11/16 08:30 PT 10.3 Seconds (9.9-11.8) 08/11/16 04:29 INR 0.95 (0.93-1.08) 08/11/16 04:29 APTT 28.0 Seconds (23.7-30.8) 08/11/16 04:29 Sodium 142 mmol/L (132-148) 08/12/16 06:30 Potassium 4.0 mmol/L (3.6-5.0) 08/12/16 06:30 Chloride 107 mmol/L (95-110) 08/12/16 06:30 Carbon Dioxide 26 mmol/L (21-33) 08/12/16 06:30 Anion Gap 13 (10-20) 08/12/16 06:30 BUN 13 mg/dL (7-21) 08/12/16 06:30 Creatinine 0.8 mg/dL (0.5-1.4) 08/12/16 06:30 Est GFR ( Amer) > 60 08/12/16 06:30 Est GFR (Non-Af Amer) > 60 08/12/16 06:30 Random Glucose 93 mg/dL (70-110) 08/12/16 06:30 Calcium 8.7 mg/dL (8.4-10.5) 08/12/16 06:30 Total Bilirubin 0.4 mg/dL (0.2-1.3) 08/12/16 06:30 AST 19 U/L (15-39) 08/12/16 06:30 ALT 26 U/L (7-56) 08/12/16 06:30 Alkaline Phosphatase 64 U/L (38-133) 08/12/16 06:30 Troponin I < 0.01 ng/mL 08/11/16 18:39 Total Protein 6.3 g/dL (5.8-8.3) 08/12/16 06:30 Albumin 3.4 g/dL (3.0-4.8) 08/12/16 06:30 Globulin 2.9 gm/dL 08/12/16 06:30 Albumin/Globulin Ratio 1.2 (1.1-1.8) 08/12/16 06:30 Lipase 175 U/L (23-300) 08/10/16 23:03 Urine Color Yellow (YELLOW) 08/10/16 23:45 Urine Appearance Clear (CLEAR) 08/10/16 23:45 Urine pH 6.0 (4.7-8.0) 08/10/16 23:45 Ur Specific [place] 1.020 (1.005-1.035) 08/10/16 23:45 Urine Protein Negative mg/dL (<30 mg/dL) 08/10/16 23:45 Urine Glucose (UA) Negative mg/dL (NEGATIVE) 08/10/16 23:45 Urine Ketones Negative mg/dL (NEGATIVE) 08/10/16 23:45 Urine Blood Negative (NEGATIVE) 08/10/16 23:45 Urine Nitrate Negative (NEGATIVE) 08/10/16 23:45 Urine Bilirubin Negative (NEGATIVE) 08/10/16 23:45 Urine Urobilinogen 0.2 E.U./dL (<1 E.U./dL) 08/10/16 23:45 Ur Leukocyte Esterase Negative Ismael/uL (NEGATIVE) 08/10/16 23:45 Urine HCG, Qual Negative (NEGATIVE) 08/10/16 23:45 Blood Type B POSITIVE 08/11/16 05:15 Blood Type Confirm B POSITIVE 08/11/16 06:10 Antibody Screen Negative 08/11/16 05:15 BBK History Checked No verified bt 08/11/16 05:15 - Date & Time of H&P Date of H&P: 08/11/16 Time of H&P: 06:50 Discharge Exam - Head Exam Head Exam: ATRAUMATIC, NORMAL INSPECTION, NORMOCEPHALIC - Eye Exam Eye Exam: EOMI, Normal appearance, PERRL - ENT Exam ENT Exam: Mucous Membranes Moist, Normal Exam - Respiratory Exam Respiratory Exam: Clear to PA & Lateral, NORMAL BREATHING PATTERN. absent: Rales, Rhonchi, Wheezes, Respiratory Distress - Cardiovascular Exam Cardiovascular Exam: REGULAR RHYTHM, +S1, +S2. absent: Gallop, Rubs, Systolic Murmur - GI/Abdominal Exam GI & Abdominal Exam: Soft. absent: Distended, Guarding, Rigid, Tenderness - Neurological Exam Neurological exam: Alert, Oriented x3 - Psychiatric Exam Psychiatric exam: Normal Affect, Normal Mood - Skin Skin Exam: Normal Color, Warm Discharge Plan - Discharge Medications Prescriptions: Famotidine [Pepcid] 20 mg PO HS #20 tab oxyCODONE/Acetaminophen [Percocet 5/325 mg Tab] 1 ea PO Q6H PRN #10 tab PRN Reason: Pain, Moderate (4-7) - Follow Up Plan Condition: STABLE Disposition: HOME/ ROUTINE Instructions: Famotidine (By mouth), Oxycodone/Acetaminophen (By mouth), Peptic Ulcer (DC), Cholecystitis (DC), Low Fat Diet (DC) Additional Instructions: 1. Patient should f/u within 1-[address] Lopez 2. Return to ED if any new or worsening pain/vomiting/fevers develo 2. Meds: Pepcid 20mg PO at night, percocet 5/325 mg every 6 hours as needed PO 3. Recommendations: AVOID FATTY FOODS! Patient should follow low-fat diet, so as to not aggravate her symptoms Referrals: Antoni Pan MD [Staff Provider] - Heriberto Lopez MD [Staff Provider] - PCP,NO [Primary Care Provider] - <Bozena Reed - Last Filed: 08/12/16 22:04> Provider - Provider Date of Admission: 08/11/16 04:32 Attending physician: Carola Taveras MD Primary care physician: NO PRIMARY CARE PROVIDER Hospital Course - Lab Results Lab Results: Most Recent Lab Values WBC 5.9 10^3/ul (4.5-11.0) 08/12/16 06:30 RBC 4.32 10^6/uL (3.5-6.1) 08/12/16 06:30 Hgb 12.4 gm/dL (12.0-16.0) 08/12/16 06:30 Hct 38.2 % (36.0-48.0) 08/12/16 06:30 MCV 88.4 fL (80.0-105.0) 08/12/16 06:30 MCH 28.7 pg (25.0-35.0) 08/12/16 06:30 MCHC 32.5 g/dl (31.0-37.0) 08/12/16 06:30 RDW 12.5 % (11.5-14.5) 08/12/16 06:30 Plt Count 225 10^3/uL (120.0-450.0) 08/12/16 06:30 MPV 10.7 fl (7.0-11.0) 08/12/16 06:30 Gran % 49.2 % (50.0-68.0) L 08/11/16 08:30 Lymph % (Auto) 32.0 % (22.0-35.0) 08/11/16 08:30 Bledso[place] % (Auto) 8.3 % (1.0-6.0) H 08/11/16 08:30 Eos % (Auto) 10.1 % (1.5-5.0) H 08/11/16 08:30 Baso % (Auto) 0.4 % (0.0-3.0) 08/11/16 08:30 Gran # 2.72 (1.4-6.5) 08/11/16 08:30 Lymph # 1.8 (1.2-3.4) 08/11/16 08:30 [place] # 0.5 (0.1-0.6) 08/11/16 08:30 Eos # 0.6 (0.0-0.7) 08/11/16 08:30 Baso # 0.02 K/mm3 (0.0-2.0) 08/11/16 08:30 PT 10.3 Seconds (9.9-11.8) 08/11/16 04:29 INR 0.95 (0.93-1.08) 08/11/16 04:29 APTT 28.0 Seconds (23.7-30.8) 08/11/16 04:29 Sodium 142 mmol/L (132-148) 08/12/16 06:30 Potassium 4.0 mmol/L (3.6-5.0) 08/12/16 06:30 Chloride 107 mmol/L (95-110) 08/12/16 06:30 Carbon Dioxide 26 mmol/L (21-33) 08/12/16 06:30 Anion Gap 13 (10-20) 08/12/16 06:30 BUN 13 mg/dL (7-21) 08/12/16 06:30 Creatinine 0.8 mg/dL (0.5-1.4) 08/12/16 06:30 Est GFR ( Amer) > 60 08/12/16 06:30 Est GFR (Non-Af Amer) > 60 08/12/16 06:30 Random Glucose 93 mg/dL (70-110) 08/12/16 06:30 Calcium 8.7 mg/dL (8.4-10.5) 08/12/16 06:30 Total Bilirubin 0.4 mg/dL (0.2-1.3) 08/12/16 06:30 AST 19 U/L (15-39) 08/12/16 06:30 ALT 26 U/L (7-56) 08/12/16 06:30 Alkaline Phosphatase 64 U/L (38-133) 08/12/16 06:30 Troponin I < 0.01 ng/mL 08/11/16 18:39 Total Protein 6.3 g/dL (5.8-8.3) 08/12/16 06:30 Albumin 3.4 g/dL (3.0-4.8) 08/12/16 06:30 Globulin 2.9 gm/dL 08/12/16 06:30 Albumin/Globulin Ratio 1.2 (1.1-1.8) 08/12/16 06:30 Lipase 175 U/L (23-300) 08/10/16 23:03 Urine Color Yellow (YELLOW) 08/10/16 23:45 Urine Appearance Clear (CLEAR) 08/10/16 23:45 Urine pH 6.0 (4.7-8.0) 08/10/16 23:45 Ur Specific [place] 1.020 (1.005-1.035) 08/10/16 23:45 Urine Protein Negative mg/dL (<30 mg/dL) 08/10/16 23:45 Urine Glucose (UA) Negative mg/dL (NEGATIVE) 08/10/16 23:45 Urine Ketones Negative mg/dL (NEGATIVE) 08/10/16 23:45 Urine Blood Negative (NEGATIVE) 08/10/16 23:45 Urine Nitrate Negative (NEGATIVE) 08/10/16 23:45 Urine Bilirubin Negative (NEGATIVE) 08/10/16 23:45 Urine Urobilinogen 0.2 E.U./dL (<1 E.U./dL) 08/10/16 23:45 Ur Leukocyte Esterase Negative Ismael/uL (NEGATIVE) 08/10/16 23:45 Urine HCG, Qual Negative (NEGATIVE) 08/10/16 23:45 Blood Type B POSITIVE 08/11/16 05:15 Blood Type Confirm B POSITIVE 08/11/16 06:10 Antibody Screen Negative 08/11/16 05:15 BBK History Checked No verified bt 08/11/16 05:15 Attending/Attestation - Attestation I have personally seen and examined this patient.: Yes I have fully participated in the care of the patient.: Yes I have reviewed all pertinent clinical information, including history, physical exam and plan: Yes Notes (Text): 08/12/16 22:03 Patient seen and examined at bedside.Tolerated her diet and remained symptoms free. case discussed with GI and surgery service and outpatient Lap.Marilyn advised. PPI ordered upon discharge along with prn analgesic support. Agree with the remainder of the discharge plan as outlined by the resident.
[2016-08-12] MEDS ORDERED: Pantoprazole 40 mg EC Tab PO ONE (19:07)
== END 2016-08-12 19:07 | disposition home or self-care (01) ==
LOC: ED 22:10 → ERH 08-11 04:32 → 5RNO 08-11 05:31
PROVIDERS: ADMIT Internal Medicine; ATTEND Internal Medicine
DX: K80.00 Calculus of gallbladder with acute cholecystitis without obstruction (principal); K21.9 Gastro-esophageal reflux disease without esophagitis; K59.00 Constipation, unspecified; Z87.11 Personal history of peptic ulcer disease; Z90.710 Acquired absence of both cervix and uterus; Z82.49 Family history of ischemic heart disease and other diseases of the circulatory system; R40.2412 Glasgow coma scale score 13-15, at arrival to emergency department; Z90.722 Acquired absence of ovaries, bilateral
CPT/HCPCS: 36415; 71010; 74000; 76700; 78227; 80053; 81003; 83690; 84484; 84703; 85025; 85027; 85610; 85730; 86850; 86900; 93005; 96365; 96375; 96376; 99283; A9537; G0378; J1170; J2405; J2543; J7040; Q9966

== ENCOUNTER 2017-02-26 17:39 | Observation (INO) | payer MEDICAID ==
[2017-02-26 17:39] VITALS: BMI 30.2
[2017-02-26] MEDS ORDERED: Sodium Chloride 0.9% 1,000 ML IV STA (20:11)
[2017-02-26] MEDS ORDERED: Morphine 4 mg/ml ISec IVP STA (20:11)
--- NOTE | 2017-02-26 20:17 | ED PDOC ---
Arrival/HPI - General Chief Complaint: Abdominal Pain Time Seen by Provider: 02/26/17 19:59 Historian: Patient - History of Present Illness Narrative History of Present Illness (Text): 02/26/17 20:15 This 56 yo female presents to this ED with her daughter c/o RUQ abdominal pain x 3 days. Patient stated she had similar symptoms last year, and she was told she has GB stones. Patient worsen after she had lunch. Patient is constant. Denies other somatic complains. Time/Duration: Other (see hpi) Quality: Aching Context: Home Past Medical History - Provider Review Nursing Documentation Reviewed: Yes - Infectious Disease Hx of Infectious Diseases: None - Tetanus Immunization Tetanus Immunization: Unknown - Reproductive Menopause: Yes - Hematological/Oncological Hx Blood Transfusions: No Hx Blood Transfusion Reaction: No - Musculoskeletal/Rheumatological Hx Falls: No - Gastrointestinal Other/Comment: gall bladder problem - Psychiatric Hx Substance Use: No - Surgical History Hx Hysterectomy: Yes - Anesthesia Hx Anesthesia Reactions: No Hx Malignant Hyperthermia: No Family/Social History - Physician Review Nursing Documentation Reviewed: Yes Family/Social History: Other (noncontributory) Smoking Status: Never Smoked Hx Alcohol Use: No Hx Substance Use: No Allergies/Home Meds Allergies/Adverse Reactions: Allergies No Known Allergies Allergy (Verified 01/20/15 13:46) Home Medications: Home Meds Medication Instructions Recorded Confirmed Cetirizine HCl [Zyrtec] 10 mg PO DAILY 02/26/17 02/26/17 Review of Systems - Review of Systems Constitutional: Normal. absent: Fatigue, Weight Change, Fevers Eyes: Normal ENT: Normal Respiratory: Normal Cardiovascular: Normal Gastrointestinal: Abdominal Pain, Nausea. absent: Diarrhea, Vomiting Genitourinary Female: Normal Musculoskeletal: Normal Skin: Normal Neurological: Normal Endocrine: Normal Hemo/Lymphatic: Normal Psychiatric: Normal Physical Exam Vital Signs Temp Pulse Resp BP Pulse Ox 02/27/17 01:00 98.6 F 80 16 140/72 100 02/26/17 23:00 98.7 F 72 14 138/70 100 02/26/17 21:00 98.6 F 76 14 138/80 99 02/26/17 19:39 98.6 F 80 16 142/72 100 02/26/17 17:56 98.7 F 65 18 144/80 98 Temperature: Afebrile Blood Pressure: Normal Pulse: Regular Respiratory Rate: Normal Appearance: Positive for: Well-Appearing, Non-Toxic, Comfortable Pain Distress: None Mental Status: Positive for: Alert and Oriented X 3 - Systems Exam Head: Present: Atraumatic, Normocephalic Pupils: Present: PERRL Extroacular Muscles: Present: EOMI Conjunctiva: Present: Normal Mouth: Present: Moist Mucous Membranes Neck: Present: Normal Range of Motion Respiratory/Chest: Present: Clear to Auscultation, Good Air Exchange. No: Respiratory Distress, Accessory Muscle Use Cardiovascular: Present: Regular Rate and Rhythm, Normal S1, S2. No: Murmurs Abdomen: Present: Tenderness (RUQ tenderness. (+) MUrphys' sign), Normal Bowel Sounds. No: Distention, Peritoneal Signs Back: Present: Normal Inspection Upper Extremity: Present: Normal Inspection. No: Cyanosis, Edema Lower Extremity: Present: Normal Inspection. No: Edema Neurological: Present: GCS=15, CN II-XII Intact, Speech Normal Skin: Present: Warm, Dry, Normal Color. No: Rashes Psychiatric: Present: Alert, Oriented x 3, Normal Insight, Normal Concentration Medical Decision Making ED Course and Treatment: 02/26/17 22:[address] Lopez general surgeon. I reviewed labs, and ultrasound report with him. He said he will take this case on consult, and patient will need to be on hospitalist service 02/26/17 22:[address] Burton regarding patient c/o RUQ abd. pain, and ultrasound findings. He agrees with plan for observation. Re-evaluation Time: 22:35 Reassessment Condition: Re-examined, Improving,but remains with symptoms - Lab Interpretations Lab Results: 02/26/17 20:30 02/26/17 20:30 Lab Results 02/26/17 20:30: Sodium 142, Potassium 3.8, Chloride 104, Carbon Dioxide 27, Anion Gap 14, BUN 15, Creatinine 0.8, Est GFR ( Amer) > 60, Est GFR (Non- Af Amer) > 60, Random Glucose 102, Calcium 9.4, Total Bilirubin 0.2, AST 17, ALT 21, Alkaline Phosphatase 70, Total Protein 7.5, Albumin 4.1, Globulin 3.4, Albumin/Globulin Ratio 1.2, Lipase 192 02/26/17 20:30: PT 11.4, INR 1.00, APTT 28.6 02/26/17 20:30: WBC 6.9, RBC 4.31, Hgb 12.3, Hct 38.3, MCV 88.9, MCH 28.5, MCHC 32.1, RDW 12.9, Plt Count 244, MPV 10.8, Gran % 56.4, Lymph % (Auto) 30.8, Donley % (Auto) 6.6 H, Eos % (Auto) 6.1 H, Baso % (Auto) 0.1, Gran # 3.86, Lymph # 2.1 , Donley # 0.5, Eos # 0.4, Baso # 0.01 I have reviewed the lab results: Yes Interpretation: No clinic. lab abnormalty - RAD Interpretation Narrative RAD Interpretations (Text): 02/26/17 22:10 EXAM: US Abdomen Complete FINDINGS: Liver: The liver demonstrates no focal defects and demonstrates hepatopetal flow and measures 14.9 cm. No intrahepatic bile duct dilation. Gallbladder: The gallbladder demonstrates a large stone in the neck. There is slight wall thickening measuring 3-4 mm. There is a negative sono Antunez's sign. Common bile duct: CBD measures 4 mm. No stones. No dilation. Pancreas: The pancreas is not seen due to gas shadowing. Kidneys: The right kidney is normal measuring 10.0 cm with no hydronephrosis. The left kidney is normal measuring 10.1 cm with no hydronephrosis. No stones. Spleen: The the spleen is normal measuring 11.3 cm. Aorta: The Not seen due to gas shadowing. Inferior vena cava: The IVC is normal. IMPRESSION: 1. Large gallstone in the gallbladder neck. There is slight gallbladder wall thickening measuring 3-4 mm but a negative sono Antunez's sign. 2. Otherwise negative abdominal sonogram. No hydronephrosis. Thank you for allowing us to participate in the care of your patient. Dictated and Authenticated by: Hoang Martinez MD 02/26/2017 9:42 PM Eastern Time ([place] & [place]) 02/26/17 22:11 Radiology Orders: 02/26/17 20:10 ABDOMEN COMPLETE [US] Stat 02/26/17 22:44 CHEST PORTABLE [RAD] Stat - Medication Orders Current Medication Orders: Discontinued Medications Hydromorphone HCl (Dilaudid) 0.5 mg IVP Q4H PRN PRN Reason: Pain, moderate (4-7) Last Admin: 02/28/17 00:06 Dose: 0.5 mg TIANNA Pain Assessment Document 02/28/17 00:06 PCO (Rec: 02/28/17 00:08 [id number]) Pain Reassessment Is this a pain reassessment? No Sleep Is patient sleeping during reassessment? No Presence of Pain Presence of Pain Yes Pain Scale Used Pain Scale Used Numeric Location Pain Location Body Site Abdomen Description Description Intermittent Intensity of Pain at present 7 Acceptable Level of Pain 0/10 Radiation Location no Pain Behavior Moaning Rubbing Site Facial Grimacing Aggravating Factors Changing Position Exercise/Activity Alleviating Factors/Management Medication Techniques Relaxation Techniques Inactivity Alleviating Factors Medication Effects of Pain can't sleep IVP Administration Document 02/28/17 00:06 PCO (Rec: 02/28/17 00:08 O [facility] [id number]) Charges for Administration # of IVP Administrations 1 Re-Assess: TIANNA Pain Assessment Document 02/28/17 01:06 PCO (Rec: 02/28/17 03:26 PCO [id number] Pain Reassessment Is this a pain reassessment? Yes Sleep Is patient sleeping during reassessment? No Presence of Pain Presence of Pain No Hydromorphone HCl (Dilaudid) 0.5 mg IVP Q15M PRN PRN Reason: Pain, severe (8-10) Stop: 02/27/17 23:59 Sodium Chloride (Sodium Chloride 0.9%) 1,000 mls @ 999 mls/hr IV .Q1H1M STA Stop: 02/26/17 21:11 Last Admin: 02/26/17 20:32 Dose: 999 mls/hr eMAR Start Stop Document 02/26/17 20:32 AB (Rec: 02/26/17 20:32 AB [id number]) Intravenous Solution Start Date 02/26/17 Start Time 20:32 End Date 02/26/17 End time 21:32 Total Infusion Time 60 Lactated Ringer's (Lactated Ringer's) 1,000 mls @ 125 mls/hr IV .Q8H JUANA Last Admin: 02/28/17 09:31 Dose: 125 mls/hr eMAR Start Stop Document 02/28/17 09:31 EP (Rec: 02/28/17 09:31 EP [id number]) Intravenous Solution Start Date 02/28/17 Start Time 09:31 Piperacillin Sod/Tazobactam Sod (Zosyn 3.375 In Ns 100ml) 100 mls @ 200 mls/hr IVPB Q6 JUANA PRN Reason: Protocol Stop: 02/27/17 06:29 Last Admin: 02/27/17 07:03 Dose: 200 mls/hr eMAR Start Stop Document 02/27/17 07:03 KT (Rec: 02/27/17 08:03 KT [id number]) Intravenous Solution Start Date 02/27/17 Start Time 07:30 End Date 02/27/17 End time 08:00 Total Infusion Time 30 Famotidine 20 mg/ (Miscellaneous) 50 mls @ 100 mls/hr IVPB ONCE ONE Stop: 02/27/17 15:22 Last Admin: 02/27/17 16:29 Dose: 100 mls/hr eMAR Start Stop Document 02/27/17 16:29 EP (Rec: 02/27/17 16:29 EP [id number]) Intravenous Solution Start Date 02/27/17 Start Time 16:29 End Date 02/27/17 End time 16:59 Total Infusion Time 30 Lactated Ringer's (Lactated Ringer's) 1,000 mls @ 75 mls/hr IV .[id number] JUANA Stop: 02/28/17 02:01 Last Admin: 02/27/17 22:21 Dose: 75 mls/hr eMAR Start Stop Document 02/27/17 22:21 PCO (Rec: 02/27/17 22:24 PCO [id number]) Intravenous Solution Start Date 02/27/17 Start Time 22:22 End Date 02/28/17 End time 11:50 Total Infusion Time 808 Cefazolin Sodium (Ancef 1gm In Ns) 1 gm in 100 mls @ 100 mls/hr IVPB Q8 JUANA Stop: 02/28/17 06:59 Last Admin: 02/28/17 06:18 Dose: 100 mls/hr eMAR Start Stop Document 02/28/17 06:18 PCO (Rec: 02/28/17 06:18 PCO [id number] Intravenous Solution Start Date 02/28/17 Start Time 06:18 End Date 02/28/17 End time 07:20 Total Infusion Time 62 Metoclopramide HCl (Reglan) 10 mg IV ONCE PRN PRN Reason: Nausea/Vomiting Morphine Sulfate (Morphine) 4 mg IVP STAT STA Stop: 02/26/17 20:12 Last Admin: 02/26/17 20:32 Dose: 4 mg [facility] Pain Assessment Document 02/26/17 20:32 AB (Rec: 02/26/17 20:32 [id number]) Pain Reassessment Is this a pain reassessment? Yes Sleep Is patient sleeping during reassessment? No Presence of Pain Presence of Pain Yes Pain Scale Used Pain Scale Used Numeric Location Left, Right or Bilateral Right Pain Location Body Site Abdomen Description Description Constant Intensity of Pain at present 8 Radiation Location back Duration x 6 days Pain Behavior Guarding Aggravating Factors ADL's Alleviating Factors/Management Medication Techniques IVP Administration Document 02/26/17 20:32 AB (Rec: 02/26/17 20:32 AB [id number]) Charges for Administration # of IVP Administrations 1 Re-Assess: [facility] Pain Assessment Document 02/26/17 21:32 AB (Rec: 02/27/17 00:09 AB [id number]) Pain Reassessment Is this a pain reassessment? Yes Sleep Is patient sleeping during reassessment? No Presence of Pain Presence of Pain Yes Pain Scale Used Pain Scale Used Numeric Location Left, Right or Bilateral Right Pain Location Body Site Abdomen Description Description Constant Pain not relieved and LIP/MD was Yes notified Morphine Sulfate (Morphine) 2 mg IVP Q15M PRN PRN Reason: Pain, moderate (4-7) Stop: 02/28/17 01:00 Ondansetron HCl (Zofran Inj) 4 mg IVP STAT STA Stop: 02/26/17 20:12 Last Admin: 02/26/17 20:11 Dose: 4 mg IVP Administration Document 02/26/17 20:11 AB (Rec: 02/26/17 21:13 AB [id number]) Charges for Administration # of IVP Administrations 1 Ondansetron HCl (Zofran Inj) 4 mg IVP Q4 PRN PRN Reason: Nausea/Vomiting Last Admin: 02/27/17 11:45 Dose: 4 mg IVP Administration Document 02/27/17 11:45 EP (Rec: 02/27/17 11:45 EP [id number]) Charges for Administration # of IVP Administrations 1 Ondansetron HCl (Zofran Inj) 4 mg IVP ONCE PRN PRN Reason: Nausea/Vomiting Pantoprazole Sodium (Protonix Inj) 40 mg IVP DAILY JUANA Last Admin: 02/28/17 09:31 Dose: 40 mg IVP Administration Document 02/28/17 09:31 EP (Rec: 02/28/17 09:31 EP [id number]) Charges for Administration # of IVP Administrations 1 Tramadol HCl (Ultram) 50 mg PO TID PRN PRN Reason: Pain, moderate (4-7) Last Admin: 02/28/17 10:33 Dose: 50 mg MAR Pain Assessment Document 02/28/17 10:33 EP (Rec: 02/28/17 10:33 EP [id number]) Pain Reassessment Is this a pain reassessment? No Sleep Is patient sleeping during reassessment? No Presence of Pain Presence of Pain Yes Pain Scale Used Pain Scale Used Numeric Location Pain Location Body Site Abdomen Description Description Intermittent Intensity of Pain at present 10 Pain Behavior Restlessness Aggravating Factors ADL's Re-Assess: [facility] Pain Assessment Document 02/28/17 11:33 EP (Rec: 02/28/17 16:49 EP [id number]) Pain Reassessment Is this a pain reassessment? Yes Sleep Is patient sleeping during reassessment? No Presence of Pain Presence of Pain No Disposition/Present on Arrival - Present on Arrival Any Indicators Present on Arrival: No History of DVT/PE: No History of Uncontrolled Diabetes: No Urinary Catheter: No History of Decub. Ulcer: No History Surgical Site Infection Following: None - Disposition Have Diagnosis and Disposition been Completed?: Yes Diagnosis: Intractable abdominal pain, Gall bladder stones Disposition: HOSPITALIZED Disposition Time: 22:45 Patient Plan: Admission Condition: STABLE
[2017-02-26 21:03] LABS: ALB/GLOB RATIO 1.2 (1.1-1.8); ALBUMIN 4.1 g/dL (3.0-4.8); ALT/SGPT 21 U/L (7-56); AST/SGOT 17 U/L (14-36); BLOOD UREA NITROGEN 15 mg/dL (7-21); CALCIUM 9.4 mg/dL (8.4-10.5); GFR AFRICAN-AMERICAN > 60; GFR NON-AFRICAN AMERICAN > 60; LIPASE 192 U/L (23-300)
[2017-02-26 21:04] LABS: BASO # 0.01 K/mm3 (0.0-2.0); BASO % 0.1 % (0.0-3.0); EOS # 0.4 (0.0-0.7); EOS % 6.1 % (1.5-5.0); GRAN # 3.86 (1.4-6.5); GRAN % 56.4 % (50.0-68.0); HEMOGLOBIN 12.3 g/dL (12.0-16.0); LYMPH # 2.1 (1.2-3.4); LYMPH % 30.8 % (22.0-35.0); MEAN CELL VOLUME 88.9 fl (80.0-105.0); MEAN CORPUSCULAR HEMOGLOBIN 28.5 pg (25.0-35.0); MEAN CORPUSCULAR HGB CONC 32.1 g/dl (31.0-37.0); MEAN PLATELET VOLUME 10.8 fl (7.0-11.0); MONO # 0.5 (0.1-0.6); MONO % 6.6 % (1.0-6.0); RBC 4.31 10^6/uL (3.5-6.1); RED CELL DISTRIBUTION WIDTH 12.9 % (11.5-14.5); WHITE BLOOD COUNT 6.9 10^3/ul (4.5-11.0)
[2017-02-26 21:13] LABS: PARTIAL THROMBOPLASTIN TIME 28.6 Seconds (25.1-36.5)
[2017-02-26 21:54] LABS: PROTHROMBIN TIME 11.4 SECONDS (9.4-12.5)
--- NOTE | 2017-02-26 23:27 | CP.PCM.CON ---
<Sudarshan Barrera - Last Filed: 02/27/17 00:04> History of Present Illness - History of Present Illness History of Present Illness: General Surgery Consult note- Dr. Ortgea 56F pmhx GERD typically relieved by zantac, previously admitted in 08/2016 for symptomatic cholelithiasis presents to [facility] ED for sharp RUQ pain that radiates to the right scapula started 3 days ago, has got progressively worse. pain is associated with deep inspiration. Patient attempted taking Zantac but stated minimal relief. States nausea, and loose stools. denies vomiting, recent sick contacts Denies: Fevers, chills, chest pain, shortness of breath, numbness/tingling in extremities, changes in urinary habits, blood in stool. PMH: GERD PSH: Hysterectomy/bilateral salpingoophorectomy, neck cyst removal Social: denies tobacco/alcohol/illicit drug use Allergies: NKDA Review of Systems - Review of Systems All systems: reviewed and no additional remarkable complaints except - Constitutional Constitutional: As Per HPI Past Patient History - Infectious Disease Hx of Infectious Diseases: None - Tetanus Immunizations Tetanus Immunization: Unknown - Past Social History Smoking Status: Never Smoked - HEMATOLOGICAL/ONCOLOGICAL Hx Blood Transfusions: No Hx Blood Transfusion Reaction: No - MUSCULOSKELETAL/RHEUMATOLOGICAL Hx Falls: No - GASTROINTESTINAL Other/Comment: gall bladder problem - PSYCHIATRIC Hx Substance Use: No - SURGICAL HISTORY Hx Hysterectomy: Yes - ANESTHESIA Hx Anesthesia Reactions: No Hx Malignant Hyperthermia: No Meds Allergies/Adverse Reactions: Allergies Allergy/AdvReac Type Severity Reaction Status Date / Time No Known Allergies Allergy Verified 01/20/15 13:46 Physical Exam - Constitutional Appears: Non-toxic, No Acute Distress - Head Exam Head Exam: ATRAUMATIC - Eye Exam Eye Exam: EOMI. absent: Scleral icterus - ENT Exam ENT Exam: Mucous Membranes Moist - Respiratory Exam Respiratory Exam: NORMAL BREATHING PATTERN. absent: Accessory Muscle Use, Respiratory Distress - Cardiovascular Exam Cardiovascular Exam: +S1, +S2. absent: Bradycardia, Tachycardia - GI/Abdominal Exam GI & Abdominal Exam: Guarding, Soft, Tenderness. absent: Distended, Firm, Hernia, Rigid Additional comments: Tender to palpation in RUQ voluntary gaurding + freeman sign - Neurological Exam Neurological exam: Alert, Oriented x3 - Psychiatric Exam Psychiatric exam: Normal Affect - Skin Skin Exam: Dry, Normal Color Results - Vital Signs Recent Vital Signs: Last Vital Signs Temp 98.6 F 02/26/17 21:00 Pulse 76 02/26/17 21:00 Resp 14 02/26/17 21:00 BP 138/80 02/26/17 21:00 Pulse Ox 99 02/26/17 21:00 - Labs Result Diagrams: 02/26/17 20:30 02/26/17 20:30 Assessment & Plan - Assessment and Plan (Free Text) Assessment: 56F hx of biliary colic; symptomatic cholelithiasis vs acute cholecystitis US: 2cm stone in neck of GB, GBW thickening 6mm, CBD WNL Plan: - NPO - IVF/Abx - Pain control and Anti-emetic PRN - serial abd exams - DVT ppx - possible OR tomorrow - further recs per Dr. Ortega surgical attending Sudarshan Barrera PGY1 <Heriberto Lopez - Last Filed: 02/28/17 20:09> Results - Vital Signs Recent Vital Signs: Last Vital Signs Temp 99 F 02/28/17 08:46 Pulse 80 02/28/17 08:46 Resp 19 02/28/17 08:46 BP 106/59 L 02/28/17 08:46 Pulse Ox 92 L 02/28/17 08:46 - Labs Result Diagrams: 02/28/17 07:30 02/28/17 07:30 Labs: Laboratory Results - last 24 hr 02/28/17 02/28/17 07:30 07:30 WBC 12.1 H D RBC 4.10 Hgb 11.7 L Hct 35.4 L MCV 86.3 MCH 28.5 MCHC 33.1 RDW 13.1 Plt Count 239 MPV 10.6 Gran % 83.5 H Lymph % (Auto) 11.4 L [place] % (Auto) 5.1 Eos % (Auto) 0.0 L Baso % (Auto) 0.0 Gran # 10.07 H Lymph # 1.4 [place] # 0.6 Eos # 0.0 Baso # 0.00 Sodium 140 Potassium 3.7 Chloride 104 Carbon Dioxide 28 Anion Gap 12 BUN 12 Creatinine 0.7 Est GFR ( Amer) > 60 Est GFR (Non-Af Amer) > 60 Random Glucose 112 H Calcium 9.4 Total Bilirubin 0.3 AST 38 H D ALT 48 Alkaline Phosphatase 64 Total Protein 6.5 Albumin 3.5 Globulin 3.0 Albumin/Globulin Ratio 1.2 Assessment & Plan - Assessment and Plan (Free Text) Plan: Patient was seen, evaluated and examined by me. I agree with the assessment and plan as per the resident's note.Patient was seen in the emergency room on .
--- NOTE | 2017-02-26 23:52 | CP.PCM.HP ---
<Choco Myers - Last Filed: 02/27/17 00:28> History of Present Illness - History of Present Illness History of Present Illness: Chief Complaint: RUQ abdominal pain HPI: Patient is a 56 year old female with a past medical history of cholelithiasis who presented to [facility] ED on 12/27/16 with complaints of right upper quadrant abdominal pain which began this past Sunday night. Patient states she was resting when the abdominal pain started. She describes the pain as sharp and stabbing, rating it a 9/10 with radiation to the back and left side of her abdomen. Patient states exacerbating factors include movement and taking deep breaths. She states there have been no relieving factors besides the morphine she has received in the ED. States pain causes her to be short of breath at times due to severity. Admits to 4 episodes of non-bloody diarrhea on 12/26 as well as a temperature of 100.3. Also admits to lack of appetite however has continued to eat meals. Last meal today was rice and chicken. Yesterday patient states she only drank soup throughout the day. Patient states she cannot recall what triggered her abdominal pain this time considering the only thing she ate prior to the pain was eggplant which was not fried. To note patient was seen previously for biliary colic in 08/2016. Patient was at the time evaluated by general surgery and instructed to follow up as outpatient, which patient did not follow through. Since then she has experienced two episodes of severe abdominal pain, this being her second. First episode was after consuming lots of cake. Patient denies chest pain, cough, body aches, headache. PMD: Dr. August Present medical illness: Cholelithiasis, Seasonal allergies Medications: Zyrtec Surgical History: Hysterectomy 21 years, lipoma removal Family history: Social history: Denies tobacco use, alcohol consumption, illicit drug use Allergies: denies Labs: WBC 6.9, H&H 12.3/38.3, Sodium 142, Potassium 3.8, BUN 15, Creatinine 0.8 , AST 17, ALT 21, Alkaline Phosphatase 70 Present on Admission - Present on Admission Any Indicators Present on Admission: No Review of Systems - Review of Systems Systems not reviewed;Unavailable: Acuity of Condition - Constitutional Constitutional: Chills, Fever. absent: Headache, Weakness - EENT Eyes: absent: Blurred Vision, Change in Vision Nose/Mouth/Throat: absent: Nasal Congestion, Dysphagia - Breasts Breasts: Mass, Pain - Cardiovascular Cardiovascular: Dyspnea. absent: Chest Pain, Chest Pain at Rest - Respiratory Respiratory: Dyspnea. absent: Cough - Gastrointestinal Gastrointestinal: Abdominal Pain, Diarrhea, Nausea. absent: Vomiting - Genitourinary Genitourinary: absent: Difficulty Urinating, Dysuria - Musculoskeletal Musculoskeletal: absent: Arthralgias, Back Pain - Integumentary Integumentary: absent: Acne - Neurological Neurological: absent: Dizziness, Numbness, Headaches - Psychiatric Psychiatric: absent: Anhedonia, Anxiety - Endocrine Endocrine: absent: Fatigue - Hematologic/Lymphatic Hematologic: absent: Easy Bleeding, Easy Bruising Past Patient History - Infectious Disease Hx of Infectious Diseases: None - Tetanus Immunizations Tetanus Immunization: Unknown - Past Social History Smoking Status: Never Smoked - HEMATOLOGICAL/ONCOLOGICAL Hx Blood Transfusions: No Hx Blood Transfusion Reaction: No - MUSCULOSKELETAL/RHEUMATOLOGICAL Hx Falls: No - GASTROINTESTINAL Other/Comment: gall bladder problem - PSYCHIATRIC Hx Substance Use: No - SURGICAL HISTORY Hx Hysterectomy: Yes - ANESTHESIA Hx Anesthesia Reactions: No Hx Malignant Hyperthermia: No Meds Allergies/Adverse Reactions: Allergies Allergy/AdvReac Type Severity Reaction Status Date / Time No Known Allergies Allergy Verified 01/20/15 13:46 Physical Exam - Constitutional Appears: Well - Head Exam Head Exam: ATRAUMATIC, NORMAL INSPECTION, NORMOCEPHALIC - Eye Exam Eye Exam: EOMI, Normal appearance - ENT Exam ENT Exam: Mucous Membranes Moist, Normal Exam - Neck Exam Neck exam: Positive for: Normal Inspection - Respiratory Exam Respiratory Exam: Clear to Auscultation Bilateral, NORMAL BREATHING PATTERN. absent: Rhonchi, Wheezes - Cardiovascular Exam Cardiovascular Exam: REGULAR RHYTHM, +S1, +S2 - GI/Abdominal Exam GI & Abdominal Exam: Firm, Normal Bowel Sounds, Tenderness (RUQ). absent: Distended - Extremities Exam Extremities exam: Positive for: normal inspection. Negative for: pedal edema, tenderness - Back Exam Back exam: NORMAL INSPECTION - Neurological Exam Neurological exam: Alert, CN II-XII Intact, Oriented x3 - Psychiatric Exam Psychiatric exam: Normal Affect, Normal Mood - Skin Skin Exam: Intact, Normal Color, Warm Results - Vital Signs Recent Vital Signs: Last Vital Signs Temp 98.6 F 02/26/17 21:00 Pulse 76 01/22/18 21:00 Resp 14 02/26/17 21:00 BP 138/80 02/26/17 21:00 Pulse Ox 99 02/26/17 21:00 - Labs Result Diagrams: 02/26/17 20:30 02/26/17 20:30 Assessment & Plan - Assessment and Plan (Free Text) Assessment: Patient is a 56 year old female with a past medical history of cholelithiasis who presented to [facility] ED on 12/27/16 with complaints of right upper quadrant abdominal pain which began this past Shane night. Plan: Cholelithiasis -GB US: reveals gall stone at neck of gallbladder, mild GB wall thickening,CBD within normal limits. -NPO -Dilaudid PRN for pain control -Zofran PRN for nausea -LR@125 -Zosyn DVT/GI prophylaxis -Knee AE hose as per surgery/Protonix <Micheal,Grabiel Q - Last Filed: 02/27/17 00:33> Results - Vital Signs Recent Vital Signs: Last Vital Signs Temp 98.7 F 02/26/17 23:00 Pulse 72 02/26/17 23:00 Resp 14 02/26/17 23:00 BP 138/70 02/26/17 23:00 Pulse Ox 100 02/26/17 23:00 - Labs Result Diagrams: 02/26/17 20:30 02/26/17 20:30 Attending/Attestation - Attestation I have personally seen and examined this patient.: Yes I have fully participated in the care of the patient.: Yes I have reviewed all pertinent clinical information: Yes Notes (Text): 02/27/17 00:32 I agree with the above; patient placed on observation for RUQ abdominal pain with surgical service on consult who is familiar with the patient from a previous visit. She was discharged and instructed to follow up with the surgical service, however did not follow up as an outpatient.
[2017-02-27] MEDS: HYDROmorphone 0.5 mg/0.5 ml ISec IVP PRN ×2 (00:22→10:01)
[2017-02-27] MEDS: Lactated Ringer's 1,000 ML IV SCH ×2 (00:23→16:30)
[2017-02-27] MEDS: Piperacillin/Tazobact 3.375 gm 100 ML IVPB SCH ×2 (00:23→07:03)
[2017-02-27 07:43] LABS: BASO # 0.01 K/mm3 (0.0-2.0); BASO % 0.1 % (0.0-3.0); EOS # 0.6 (0.0-0.7); EOS % 8.7 % (1.5-5.0); GRAN # 3.67 (1.4-6.5); GRAN % 52.3 % (50.0-68.0); HEMOGLOBIN 11.5 g/dL (12.0-16.0); LYMPH # 2.3 (1.2-3.4); LYMPH % 32.1 % (22.0-35.0); MEAN CELL VOLUME 88.1 fl (80.0-105.0); MEAN CORPUSCULAR HEMOGLOBIN 28.4 pg (25.0-35.0); MEAN CORPUSCULAR HGB CONC 32.2 g/dl (31.0-37.0); MEAN PLATELET VOLUME 10.6 fl (7.0-11.0); MONO # 0.5 (0.1-0.6); MONO % 6.8 % (1.0-6.0); RBC 4.05 10^6/uL (3.5-6.1); RED CELL DISTRIBUTION WIDTH 13.1 % (11.5-14.5)
[2017-02-27 08:02] LABS: ALB/GLOB RATIO 1.3 (1.1-1.8); ALBUMIN 3.6 g/dL (3.0-4.8); ALT/SGPT 19 U/L (7-56); AST/SGOT 17 U/L (14-36); BLOOD UREA NITROGEN 12 mg/dL (7-21); CALCIUM 9.2 mg/dL (8.4-10.5); GFR AFRICAN-AMERICAN > 60; GFR NON-AFRICAN AMERICAN > 60
--- NOTE | 2017-02-27 10:22 | US ---
HISTORY: RUQ abd. pain COMPARISON: None. TECHNIQUE: Sonographic evaluation of the abdomen. FINDINGS: LIVER: Measures 14.9 cm. Normal echogenicity of the liver parenchyma. No mass. No intrahepatic bile duct dilatation. GALLBLADDER: Gallstone seen nonmobile within gallbladder neck. Possibly impacted. Minimal mural thickening up to 4 mm. Negative sonographic Antunez sign. No pericholecystic fluid. Findings equivocal for cholecystitis. COMMON BILE DUCT: Measures 4 mm. No stones. No dilatation. PANCREAS: Unremarkable as visualized. No mass. No ductal dilatation. RIGHT KIDNEY: Measures 10.0cm. Normal echogenicity. No calculus, mass, or hydronephrosis. LEFT KIDNEY: Measures 10.1cm. Normal echogenicity. No calculus, mass, or hydronephrosis. SPLEEN: Normal in size and contour. No mass. AORTA: Could not be visualized due to bowel gas IVC: Unremarkable. OTHER FINDINGS: None. IMPRESSION: Gallstone possibly impacted in gallbladder neck with minimal mural thickening of the gallbladder. Negative sonographic Antunez sign. Equivocal findings for cholecystitis. The remainder of the examination is unremarkable. Preliminary interpretation of this examination was reported by [facility] at 9:42 p.m. on 02/26/2017. There is concurrence of this report with the preliminary interpretation.
--- NOTE | 2017-02-27 14:03 | RAD ---
HISTORY: admission COMPARISON: 08/10/2016 FINDINGS: LUNGS: No active pulmonary disease. PLEURA: No significant pleural effusion identified, no pneumothorax apparent. CARDIOVASCULAR: Normal. OSSEOUS STRUCTURES: No significant abnormalities. VISUALIZED UPPER ABDOMEN: Normal. OTHER FINDINGS: None. IMPRESSION: No active disease.
[2017-02-27] MEDS ORDERED: Famotidine 20mg/50ml 20 MG in Premixed IV 50 EA IVPB ONE (14:53)
--- NOTE | 2017-02-27 15:16 | CP.PCM.PN ---
<Nany May - Last Filed: 02/27/17 15:11> Subjective - Date & Time of Evaluation Date of Evaluation: 02/27/17 Time of Evaluation: 15:11 - Subjective Subjective: Nany May, PGY1, Medicine Progress Note for Dr Brown: Pt seen and examined at bedside. No acute events overnight. Pt states that her abdominal pain is mildly improved, but still has nausea and vomiting episodes of bilious material. Reports heartburn. Denies fever, chills, jaundice, urinary symptoms. Objective - Vital Signs/Intake and Output Vital Signs (last 24 hours): Temp Pulse Resp BP Pulse Ox 97.8 F 57 L 18 126/69 98 02/27/17 07:00 02/27/17 07:00 02/27/17 07:00 02/27/17 07:00 02/27/17 07:00 Intake and Output: 02/27/17 02/27/17 06:59 18:59 Intake Total 0 Output Total 0 Balance 0 - Medications Medications: Current Medications Hydromorphone HCl (Dilaudid) 0.5 mg IVP Q4H PRN PRN Reason: Pain, moderate (4-7) Last Admin: 02/27/17 10:01 Dose: 0.5 mg Lactated Ringer's (Lactated Ringer's) 1,000 mls @ 125 mls/hr IV .Q8H JUANA Last Admin: 02/27/17 00:23 Dose: 125 mls/hr Famotidine 20 mg/ (Miscellaneous) 50 mls @ 100 mls/hr IVPB ONCE ONE Stop: 02/27/17 15:22 Ondansetron HCl (Zofran Inj) 4 mg IVP Q4 PRN PRN Reason: Nausea/Vomiting Last Admin: 02/27/17 11:45 Dose: 4 mg Pantoprazole Sodium (Protonix Inj) 40 mg IVP DAILY JUANA Last Admin: 02/27/17 09:54 Dose: 40 mg - Labs Labs: 02/27/17 07:00 02/27/17 07:00 PT 11.4 SECONDS (9.4-12.5) 02/26/17 20:30 INR 1.00 (0.93-1.08) 02/26/17 20:30 APTT 28.6 Seconds (25.1-36.5) 02/26/17 20:30 - Constitutional Appears: Non-toxic, No Acute Distress - Head Exam Head Exam: ATRAUMATIC, NORMOCEPHALIC - Eye Exam Eye Exam: EOMI, PERRL. absent: Conjunctival injection, Scleral icterus Pupil Exam: NORMAL ACCOMODATION, PERRL - ENT Exam ENT Exam: Mucous Membranes Moist - Neck Exam Neck Exam: Full ROM - Respiratory Exam Respiratory Exam: Clear to Ausculation Bilateral. absent: Accessory Muscle Use , Rhonchi, Wheezes, Respiratory Distress - Cardiovascular Exam Cardiovascular Exam: RRR, +S1, +S2. absent: Murmur - GI/Abdominal Exam GI & Abdominal Exam: Soft, Tenderness (TTP in RUQ), Normal Bowel Sounds. absent : Distended, Firm, Guarding, Mass, Organomegaly, Rebound - Extremities Exam Extremities Exam: Normal Inspection. absent: Calf Tenderness, Pedal Edema - Back Exam Back Exam: NORMAL INSPECTION - Neurological Exam Neurological Exam: Alert, Awake, Oriented x3 - Psychiatric Exam Psychiatric exam: Normal Affect, Normal Mood - Skin Skin Exam: Dry, Normal Color, Warm Assessment and Plan - Assessment and Plan (Free Text) Assessment: Patient is a 56 year old female with a past medical history of cholelithiasis, admitted for biliary colic: Cholelithiasis -GB US: reveals gall stone at neck of gallbladder, mild GB wall thickening,CBD within normal limits. -NPO -Dilaudid PRN for pain control -Zofran PRN for nausea -LR@125 -Zosyn -Scheduled for cholecystectomy as per surgery team today at 4:30 PM. Will await recs. DVT/GI prophylaxis -Knee AE hose as per surgery/Protonix Discussed with Dr Brown. Nany May, PGY1 <Anitra Brown - Last Filed: 02/28/17 07:30> Objective - Vital Signs/Intake and Output Vital Signs (last 24 hours): Temp Pulse Resp BP Pulse Ox 99.2 F 83 20 116/66 97 02/28/17 00:00 02/28/17 00:00 02/28/17 00:00 02/28/17 00:00 02/28/17 00:00 Intake and Output: 02/28/17 02/28/17 06:59 18:59 Intake Total 240 Output Total 400 Balance -160 - Medications Medications: Current Medications Hydromorphone HCl (Dilaudid) 0.5 mg IVP Q4H PRN PRN Reason: Pain, moderate (4-7) Last Admin: 02/28/17 00:06 Dose: 0.5 mg Lactated Ringer's (Lactated Ringer's) 1,000 mls @ 125 mls/hr IV .Q8H JUANA Last Admin: 02/27/17 16:30 Dose: 125 mls/hr Ondansetron HCl (Zofran Inj) 4 mg IVP Q4 PRN PRN Reason: Nausea/Vomiting Last Admin: 02/27/17 11:45 Dose: 4 mg Pantoprazole Sodium (Protonix Inj) 40 mg IVP DAILY [facility] Last Admin: 02/27/17 09:54 Dose: 40 mg - Labs Labs: 02/27/17 07:00 02/27/17 07:00 PT 11.4 SECONDS (9.4-12.5) 02/26/17 20:30 INR 1.00 (0.93-1.08) 02/26/17 20:30 APTT 28.6 Seconds (25.1-36.5) 02/26/17 20:30 Attending/Attestation - Attestation I have personally seen and examined this patient.: Yes I have fully participated in the care of the patient.: Yes I have reviewed all pertinent clinical information, including history, physical exam and plan: Yes Notes (Text): 02/28/17 07:30 Patient was seen and examined with bilingual medical assistant.Agreed with assessment and plan. Management plan was discussed in detail with patient .Education was provided.
[2017-02-27] MEDS ORDERED: Iohexol 240 (50 ml) ONE (16:17)
[2017-02-27] MEDS ORDERED: Bupivacaine 0.5% Inj(30mL) ONE (16:17)
[2017-02-27] MEDS ORDERED: Propofol 10 mg/ml Inj (20 ML) ONE ×2 (17:17→18:37)
[2017-02-27] MEDS ORDERED: Midazolam 2 MG/2 ML VIAL ONE (17:17)
[2017-02-27] MEDS ORDERED: Rocuronium 10 mg/ml (5 ml) ONE (17:27)
--- NOTE | 2017-02-27 17:36 | CARD ---
APPROVED REPORT EKG Measurement Heart [id number] TN [id number] <Conclusion> Sinus bradycardia Otherwise normal ECG
[2017-02-27] MEDS ORDERED: HYDROmorphone 0.5 mg/0.5 ml ISec IVP PRN (17:52)
[2017-02-27] MEDS ORDERED: Morphine 2 mg/ml ISec IVP PRN (17:59)
[2017-02-27] MEDS ORDERED: Lactated Ringer's 1,000 ML IV SCH (18:00)
[2017-02-27] MEDS ORDERED: Neostigmine Methylsulfate 3mg/3ml Syringe IV ONE (18:02)
[2017-02-27] MEDS ORDERED: Glycopyrrolate 0.2 mg/ml (2ml vial) ONE (18:08)
--- NOTE | 2017-02-27 19:09 | PCM.SURG1 ---
Surgeon's Initial Post Op Note - Surgeon's Notes Surgeon: Dr. Lopez [employer] Salesperson: Dr. Ann PGY-3 Type of Anesthesia: General Endo, Local Anesthesia Administered By: Dr. Ivey Pre-Operative Diagnosis: Symptomatic cholelithiasis Operative Findings: cholelithiasiss, IOC showed no filling defects Post-Operative Diagnosis: Symptomatic cholelithiasis Operation Performed: Laparoscopic cholecystectomy with IOC Specimen/Specimens Removed: gallbladder Estimated Blood Loss: EBL {In ML}: 10 Blood Products Given: N/A Drains Used: No Drains Post-Op Condition: Good Date of Surgery/Procedure: 02/27/17 Time of Surgery/Procedure: 19:10
[2017-02-27] MEDS ORDERED: HYDROmorphone 0.5 mg/0.5 ml ISec ONE ×2 (19:28→20:10)
[2017-02-27] MEDS: ceFAZolin 1 gm in NS 1 GM/100 ML BAG IVPB SCH (22:24)
[2017-02-28] MEDS: HYDROmorphone 0.5 mg/0.5 ml ISec IVP PRN (00:06)
[2017-02-28] MEDS: ceFAZolin 1 gm in NS 1 GM/100 ML BAG IVPB SCH (06:18)
[2017-02-28 07:59] LABS: GRAN # 10.07 (1.4-6.5); GRAN % 83.5 % (50.0-68.0); HEMOGLOBIN 11.7 g/dL (12.0-16.0); LYMPH # 1.4 (1.2-3.4); LYMPH % 11.4 % (22.0-35.0); MEAN CELL VOLUME 86.3 fl (80.0-105.0); MEAN CORPUSCULAR HEMOGLOBIN 28.5 pg (25.0-35.0); MEAN CORPUSCULAR HGB CONC 33.1 g/dl (31.0-37.0); MEAN PLATELET VOLUME 10.6 fl (7.0-11.0); MONO # 0.6 (0.1-0.6); MONO % 5.1 % (1.0-6.0); RBC 4.1 10^6/uL (3.5-6.1); RED CELL DISTRIBUTION WIDTH 13.1 % (11.5-14.5); WHITE BLOOD COUNT 12.1 10^3/ul (4.5-11.0)
[2017-02-28 08:24] LABS: ALB/GLOB RATIO 1.2 (1.1-1.8); ALBUMIN 3.5 g/dL (3.0-4.8); ALT/SGPT 48 U/L (7-56); AST/SGOT 38 U/L (14-36); BLOOD UREA NITROGEN 12 mg/dL (7-21); CALCIUM 9.4 mg/dL (8.4-10.5); GFR AFRICAN-AMERICAN > 60; GFR NON-AFRICAN AMERICAN > 60
[2017-02-28 08:46] VITALS: BP 106/59; PULSE 80; RESP 19; TEMP 99; O2SAT 92
[2017-02-28] MEDS: Lactated Ringer's 1,000 ML IV SCH (09:31)
--- NOTE | 2017-02-28 16:50 | CP.PCM.PN ---
<Margarita Lorenzo - Last Filed: 02/28/17 16:43> Subjective - Date & Time of Evaluation Date of Evaluation: 02/28/17 Time of Evaluation: 09:00 - Subjective Subjective: Surgery: Dr. Lopez Pt seen and examined. POD#1 from sharonda blanco. States pain is well controlled and denies N/V, F/C. Pt is tolerating a regular diet, ambulating and urinating w/o difficulty. Objective - Vital Signs/Intake and Output Vital Signs (last 24 hours): Temp Pulse Resp BP Pulse Ox 99 F 80 19 106/59 L 92 L 02/28/17 08:46 02/28/17 08:46 02/28/17 08:46 02/28/17 08:46 02/28/17 08:46 Intake and Output: 02/28/17 02/28/17 06:59 18:59 Intake Total 1740 Output Total 400 Balance 1340 - Medications Medications: Current Medications Ondansetron HCl (Zofran Inj) 4 mg IVP Q4 PRN PRN Reason: Nausea/Vomiting Last Admin: 02/27/17 11:45 Dose: 4 mg Tramadol HCl (Ultram) 50 mg PO TID PRN PRN Reason: Pain, moderate (4-7) Last Admin: 02/28/17 10:33 Dose: 50 mg - Labs Labs: 02/28/17 07:30 02/28/17 07:30 PT 11.4 SECONDS (9.4-12.5) 02/26/17 20:30 INR 1.00 (0.93-1.08) 02/26/17 20:30 APTT 28.6 Seconds (25.1-36.5) 02/26/17 20:30 - Constitutional Appears: Well, No Acute Distress - Head Exam Head Exam: ATRAUMATIC, NORMOCEPHALIC - Eye Exam Eye Exam: Normal appearance - ENT Exam ENT Exam: Mucous Membranes Moist - Respiratory Exam Respiratory Exam: NORMAL BREATHING PATTERN - Cardiovascular Exam Cardiovascular Exam: RRR - GI/Abdominal Exam GI & Abdominal Exam: Soft, Tenderness (around incisions ). absent: Distended, Guarding, Rebound - Extremities Exam Extremities Exam: absent: Tenderness - Neurological Exam Neurological Exam: Alert, Awake, Oriented x3 - Skin Skin Exam: Dry, Warm Assessment and Plan - Assessment and Plan (Free Text) Assessment: 56F s/p lap francis; POD#1 Plan: - ok to DC home from surgical standpoint - f/u with Dr. Lopez in 1 week - d/w Dr. Jessica Lorenzo, PGY-3 Surgery <Heriberto Lopez - Last Filed: 02/28/17 20:16> Objective - Vital Signs/Intake and Output Vital Signs (last 24 hours): Temp Pulse Resp BP Pulse Ox 99 F 80 19 106/59 L 92 L 02/28/17 08:46 02/28/17 08:46 02/28/17 08:46 02/28/17 08:46 02/28/17 08:46 - Labs Labs: 02/28/17 07:30 02/28/17 07:30 PT 11.4 SECONDS (9.4-12.5) 02/26/17 20:30 INR 1.00 (0.93-1.08) 02/26/17 20:30 APTT 28.6 Seconds (25.1-36.5) 02/26/17 20:30 Assessment and Plan - Assessment and Plan (Free Text) Plan: Patient was seen, evaluated and examined by me. I agree with the assessment and plan as per the resident's note.
--- NOTE | 2017-03-02 12:48 | RAD ---
PROCEDURE: Intraoperative cholangiogram HISTORY: ? CBD OBST COMPARISON: None TECHNIQUE: Total fluoroscopic time (continuous mode) utilized during the procedure: 35.6 seconds. FINDINGS: Total exam DLP: (mGy): 12.79. Submitted images from the current procedure: 4.0 IMPRESSION: Less than 1 hr fluoroscopic time utilized during performance of the procedure.
--- NOTE | 2017-03-06 19:24 | OP ---
PROCEDURE DATE: 02/27/2017 PREOPERATIVE DIAGNOSES: Acute cholecystitis and cholelithiasis. POSTOPERATIVE DIAGNOSES: Acute cholecystitis and cholelithiasis. PROCEDURE PERFORMED: Laparoscopic cholecystectomy with intraoperative cholangiogram. SURGEON: Heriberto Lopez MD COIL TAPER: Dr. Ann TYPE OF ANESTHESIA: General endotracheal anesthesia. ANESTHESIA ADMINISTERED BY: Dr. Ivey ESTIMATED BLOOD LOSS: Minimal. SPECIMENS: Gallbladder and gallstones. INDICATIONS: The patient is a 56-year-old female with recurrent attacks of acute cholecystitis, admitted for nausea and vomiting with abdominal pain and is scheduled for laparoscopic cholecystectomy. DESCRIPTION OF PROCEDURE: The patient was brought into the operating room and placed on the operative table in supine position. The patient was connected to the EKG, blood pressure, and pulse oximetry monitors. The patient then underwent general endotracheal anesthesia and was prepped and draped in the usual sterile fashion. First, a standard time-out procedure took place and everybody in the room agreed as to the patient's identity, diagnoses, and procedure to be performed. Using two towel clips, the anterior abdominal wall was elevated and Veress needle was inserted into the abdominal cavity and the pneumoperitoneum was obtained. Next, a 12-mm trocar was inserted through this incision. A careful evaluation of the abdominal cavity revealed presence of a distended and thick walled gallbladder and several omental adhesions to it. A second 5-mm trocar was inserted in the subxiphoid position and careful dissection began. The infundibulum was identified after the gallbladder was drained with the puncture needle. Now the cystic duct was carefully dissected out and from the surrounding tissue as well as adjacent cystic artery. The cystic duct was clipped proximally. A small incision was made on the side of it and a cholangiocatheter was inserted into the cystic duct. Under direct visualization with fluoroscopy, cholangiogram was obtained revealing presence of the dye filling the entire biliary tree without any defect indicating presence of stones in the common bile duct. We then proceeded with clipping cystic duct distally and transected it. Cystic artery was also clipped and transected. The gallbladder was carefully taken off the liver bed using electrocautery. Once completely detached, it was placed in an EndoCatch bag and removed through the periumbilical incision. The right upper quadrant was copiously irrigated and all the irrigant fluid was suctioned out. There was excellent hemostasis. The pneumoperitoneum was now released, trocars removed after the gallbladder was removed through the periumbilical incision. The wounds were now closed using 0 Vicryl for the fascia, 3-0 Vicryl for the subcutaneous tissue and 4-0 Monocryl for skin. A sterile Dermabond dressing was applied to the wound. The patient tolerated the procedure well and there were no complications. The patient was awakened, extubated and transferred to the recovery room for further observation. Heriberto Lopez MD
== END 2017-02-28 17:11 | disposition home or self-care (01) ==
LOC: ED 17:39 → ERH 22:45 → OBSVTOIN 02-27 01:30 → INTOOBSV 02-27 01:30 → 5RSO 02-27 01:43
PROVIDERS: ADMIT Internal Medicine; ATTEND Internal Medicine
DX: K80.10 Calculus of gallbladder with chronic cholecystitis without obstruction (principal); K21.9 Gastro-esophageal reflux disease without esophagitis; Z90.710 Acquired absence of both cervix and uterus; Z88.8 Allergy status to other drugs, medicaments and biological substances
CPT/HCPCS: 36415; 47563; 71045; 74300; 76700; 80053; 83690; 85025; 85610; 85730; 88304; 93005; 96361; 96365; 96375; 99285; C9113; G0378; J0690; J1100; J1170; J2001; J2250; J2270; J2405; J2543; J2704; J2710; J2765; J3010; J7040; J7120; Q9966